=== PATIENT | male | born 1940 | race Caucasian/White ===

== ENCOUNTER 2017-06-05 14:08 | Emergency (ER) | payer MEDICARE, BC ==
[2017-06-05 16:02] LABS: ALBUMIN 3.3 g/dL (3.4-5.0); ANION GAP 12.5 mmol/L (8-16); BILIRUBIN - TOTAL 0.44 mg/dL (0.2-1.3); CALCIUM 9.3 mg/dL (8.5-10.1); CARBON DIOXIDE 28.4 mmol/L (21.0-32.0); PROTEIN - SERUM 7.2 g/dL (6.4-8.2)
[2017-06-05 16:05] LABS: BASOPHILS 0.2 % (0-2); EOSINOPHILS 0.6 % (0-7); HEMATOCRIT 59.5 % (42.0-54.0); HEMOGLOBIN 20.8 g/dL (13.5-17.5); IMMATURE GRANULOCYTES 0.2 % (0-5); LYMPHOCYTES 11.6 % (15-50); MCH 34.2 pg (26.0-34.0); MCV 97.7 fL (80.0-100.0); MEAN PLATELET VOLUME 12.9 fL (7.4-10.4); MONOCYTES 15.6 % (2-11); PLATELET COUNT 67 10x3/uL (130-400); RBC 6.09 10x6/uL (4.20-6.10); RDW 13.7 % (11.5-14.5); WBC 8.7 10x3/uL (4.8-10.8)
[2017-06-05 16:14] LABS: POTASSIUM - SERUM 2.9 mmol/L (3.5-5.1)
[2017-06-05 16:44] LABS: PLATELET ESTIMATE DECREASED
[2017-06-05 16:45] LABS: NEUTROPHILS 71.8 % (40-80)
== END 2017-06-05 18:15 | disposition home or self-care (01) ==
LOC: D.ER 14:08
PROVIDERS: Physician Assistant
DX: K59.00 Constipation, unspecified (principal); R10.32 Left lower quadrant pain; R09.02 Hypoxemia; N28.9 Disorder of kidney and ureter, unspecified; I10 Essential (primary) hypertension; F17.200 Nicotine dependence, unspecified, uncomplicated

== ENCOUNTER → 2017-06-26 12:35 | Outpatient (CLI) | payer MEDICARE, BC ==
[2017-06-26 13:25] LABS: ANION GAP 16.3 mmol/L (8-16); CALCIUM 9.4 mg/dL (8.5-10.1); CARBON DIOXIDE 28.7 mmol/L (21.0-32.0); CREATININE - SERUM 1.4 mg/dL (0.6-1.3)
== END | disposition home or self-care (01) ==
LOC: D.LABREF 12:35
PROVIDERS: Family Medicine
DX: E11.9 Type 2 diabetes mellitus without complications (principal); J44.9 Chronic obstructive pulmonary disease, unspecified

== ENCOUNTER → 2017-07-15 17:54 | Outpatient (CLI) | payer MEDICARE, BC | END | disposition home or self-care (01) | LOC: D.LABREF 17:54 | DX: R31.9 Hematuria, unspecified (principal) ==

== ENCOUNTER → 2017-08-07 13:44 | Outpatient (CLI) | payer MEDICARE, BC ==
[~2017-08-07 13:44] MED LIST: CHLORTHALIDONE25 MG PO; GLIMEPIRIDE1 MG PO; HYDROCODONE-APA1 TAB PO; K-DUR20 MEQ PO; LIPITOR40 MG PO; LOSARTAN POTASS25 MG PO; NEURONTIN600 MG PO; NORVASC10 MG PO; PLAVIX75 MG PO; ROBAXIN500 MG PO; VENTOLIN HFA18 GM INH
[2017-10-08 09:49] VITALS: BMI 28.3
== END | disposition home or self-care (01) ==
LOC: D.CT 13:44
DX: R31.21 Asymptomatic microscopic hematuria (principal)

== ENCOUNTER → 2017-08-21 16:13 | Outpatient (CLI) | payer MEDICARE, BC ==
[2017-08-21 17:01] LABS: CHOL - HDL RATIO 2.7 ratio (2.3-4.9); LDL-HDL RATIO 1.2 ratio (1.5-3.5)
[2017-08-22 08:18] LABS: FOLATE (FOLIC ACID) - SERUM 6.2 ng/mL (>3.0)
[2017-10-08 09:49] VITALS: BMI 28.3
== END | disposition home or self-care (01) ==
LOC: D.LABREF 16:13
PROVIDERS: Internal Medicine Cardiovascular Disease
DX: E78.5 Hyperlipidemia, unspecified (principal); R53.83 Other fatigue

== ENCOUNTER 2017-10-08 08:43 | Day surgery (SDC) | payer MEDICARE, BC ==
[2017-10-07 10:15] LABS: BASOPHILS 0.5 % (0-2); EOSINOPHILS 4.5 % (0-7); HEMATOCRIT 53.3 % (42.0-54.0); HEMOGLOBIN 18.6 g/dL (13.5-17.5); IMMATURE GRANULOCYTES 0.2 % (0-5); LYMPHOCYTES 22.3 % (15-50); MCHC 34.9 g/dL (31.0-37.0); MCV 97.4 fL (80.0-100.0); MEAN PLATELET VOLUME 12.1 fL (7.4-10.4); MONOCYTES 10.8 % (2-11); NEUTROPHILS 61.7 % (40-80); RBC 5.47 10x6/uL (4.20-6.10); RDW 13.3 % (11.5-14.5); WBC 8.1 10x3/uL (4.8-10.8)
[2017-10-07 10:20] LABS: PLATELET COUNT 105 10x3/uL (130-400)
[2017-10-07 10:26] LABS: APTT 33.3 SECONDS (22.8-39.4); INR 1.01 (0.85-1.17); PROTIME 12.9 SECONDS (11.6-15.0)
[2017-10-07 10:30] LABS: ANION GAP 12.9 mmol/L (8-16); CALCIUM 9.1 mg/dL (8.5-10.1); CARBON DIOXIDE 31.7 mmol/L (21.0-32.0); CREATININE - SERUM 1.4 mg/dL (0.6-1.3); POTASSIUM - SERUM 3.6 mmol/L (3.5-5.1)
[~2017-10-08] VITALS: Ht 188 cm; Wt 99.8 kg
--- NOTE | ~2017-10-08 | OP ---
PATIENT NAME: PIPPA HDEZ MEDICAL RECORD: [id number] :38 LOCATION:D.[facility] ADMISSION DATE: SURGEON: YAMIL COSME MD DATE OF OPERATION: 10/08/2017 SURGEON: Yamil Cosme MD ANESTHESIA: MAC by Dr. Iain Salomon. PREOPERATIVE DIAGNOSIS: Urge urinary incontinence. PROCEDURES: Cystoscopy and intravesical Botox injection 100 units. FINDINGS: Trabeculated bladder, tall bladder neck. No bladder tumors. Mucosal neovascularity from previous radiation treatment. BLOOD LOSS: None. CLINICAL HISTORY: This is a 77-year-old male with a previous history of prostate cancer, which was treated with brachytherapy. He complains of urge urinary incontinence as well as microscopic hematuria. Urine cytology is normal. CT scan of the abdomen and pelvis was unremarkable. There are some renal cysts bilaterally with some loss of the renal cortices. There is diverticulosis of the colon. The radioactive seeds in the prostate are seen. 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 No tumors were seen. In terms of voiding, he has to urinate every hour on the hour at night. In the daytime, he voids every 1-1/2 hours. He is very sleep deprived due to having to wake up all the time to go pee. He has tried VESIcare without any help. He has also tried Myrbetriq samples, which also did not help. He comes now to have intravesical Botox injected. His postvoid residual with Myrbetriq was 0. He was given 2 grams of Ancef trade union official to the OR. HE IS ALLERGIC TO SULFA. DESCRIPTION OF PROCEDURE: The patient was given IV sedation. He was placed in the dorsal lithotomy position and prepped and draped. A 21-Israeli cystoscope with 30-degree lens was used for visualization. Penile urethra shows no strictures. Prostatic urethra shows no obstruction by the lateral lobes. There was a somewhat elevated bladder neck. Going into the bladder, he has a mildly trabeculated bladder. Single ureteral orifices are seen. No bladder tumors were seen, but there was a lot of neovascularity due to previous radiation exposure. At 10 different locations, 1 mL of the Botox solution was injected. Each mL has 10 units of Botox dissolved in it. A total of 100 units was given overall. At the end of the procedure, the bladder was emptied through the scope and the scope was removed. I will see the patient in followup in 2 weeks' time to check on his voiding symptoms. TRANSINT:[id number] Voice Confirmation ID: [id number] DOCUMENT ID: [id number] OPERATIVE REPORT [id number] PIPPA HDEZ, YAMIL Babb MD at 1538 CC: [id number] DICTATION DATE: 10/08/17 1302 JAVA ARCHITECT: 10/08/17 1515 [address] [place] [id number] [place] [id number]
[2017-10-08 09:49] VITALS: BP 129/65; Ht 188 cm; Wt 99.8 kg
== END 2017-10-08 17:00 | disposition home or self-care (01) ==
LOC: D.OPS 08:43
PROVIDERS: Anesthesiology
DX: N39.41 Urge incontinence (principal); F17.200 Nicotine dependence, unspecified, uncomplicated; I25.10 Atherosclerotic heart disease of native coronary artery without angina pectoris; I10 Essential (primary) hypertension; E11.9 Type 2 diabetes mellitus without complications; J44.9 Chronic obstructive pulmonary disease, unspecified; Z01.812 Encounter for preprocedural laboratory examination

== ENCOUNTER → 2017-11-04 10:32 | Outpatient (CLI) | payer MEDICARE, BC ==
[2017-10-08 09:49] VITALS: BMI 28.3
--- NOTE | ~2017-11-04 | EC ---
PATIENT:PIPPA HDEZ DATE OF SERVICE: 11/04/17 SEX: M MEDICAL RECORD: [id number] DATE OF : 36 LOCATION:D.[facility] AGE OF PATIENT: 77 ADMISSION DATE: 11/04/17 REFERRING PHYSICIAN: INTERPRETING PHYSICIAN: ANITA RODRIGUEZ MD ECHOCARDIOGRAM REPORT ECHO CHARGES 4 ECHO COMPLETE Date: 11/04 CLINICAL DIAGNOSIS: OLD MO, CAD/HTN/FATIGUE, PACER ECHOCARDIOGRAPHIC MEASUREMENTS (adult normal given) AC root (d.<3.7cm) 4.0 cm LV Septum d (<1.2 cm> 1.6 cm Valve Excursion 1.3 cm LV Septum (systole) 1.7 cm Left Atria (s.<4.0cm> 3.6 cm LVPW d(<1.2cm) 1.8 cm RV (d.<2.3cm) 4.7 cm LVPW (sytole) 2.0 cm LV diastole(<5.6CM) 5.4 cm MV E-F(>70mm/sec) cm LV systole 3.3 cm LVOT Diameter 2.2 cm MV exc.(>10mm) cm Est.ejection fraction (50-75%) % DOPPLER: LVIT cm/sec A 122 cm/sec E 72.0 cm/sec LA cm/sec RVSP 22 mmHg LVOT 108 cm/sec AOP1/2T m/s Asc. Ao 185 cm/sec RVOT 97 cm/sec RA cm/sec PA 141 cm/sec AV Gradient Peak 13.74mmHg AV Mean 6.78 mmHg AV Area 2.2 cm MV Gradient Peak 6.99 mmHg MV Mean 3.05 mmHg MV Area cm COMMENTS: Saw Superintendent: Manolo CH Business Performance Analyst: Federico Rodriguez TAPE# PACS Pericardial Effusion N DATE OF SERVICE: PROCEDURE: Transthoracic echocardiogram. FINDINGS: 1. Left ventricle is difficult to interpret. The endocardial structures are not well visualized; however, that being said, the left ventricle has mild left ventricular hypertrophy. Ejection fraction seems to be well preserved. There is no obvious regional wall motion abnormalities. The inflow characteristics are consistent with diastolic dysfunction. ECHOCARDIOGRAM REPORT [id number] PIPPA HDEZ 2. The left atrium appears to be grossly normal. 3. The aortic valve is grossly normal. 4. The mitral valve is normal. 5. The tricuspid valve has trace regurgitation. RVSP is normal. 6. The right ventricle is dilated. 7. The right atrium is dilated. Both structures are not well visualized, appears to be a pacer wire artifact. CONCLUSIONS: The patient has evidence of hypertensive heart disease, otherwise normal echocardiogram for stated age. TRANSINT:[id number] Voice Confirmation ID: [id number] DOCUMENT ID: [id number] ANITA RODRIGUEZ MD at 1120 CC: [id number] DICTATION DATE: 11/06/17 0946 ENGINE WIPER: 11/06/17 1027 DEP CLI 11/04/17 [facility] [address] [place] [address]
[~2017-11-04 10:32] MED LIST changes: +PEPCID40 MG PO
== END | disposition home or self-care (01) ==
LOC: D.ECHO 09-09 13:30
DX: I25.2 Old myocardial infarction (principal); I25.10 Atherosclerotic heart disease of native coronary artery without angina pectoris; E78.5 Hyperlipidemia, unspecified; I10 Essential (primary) hypertension; R53.83 Other fatigue; I73.9 Peripheral vascular disease, unspecified; Z95.0 Presence of cardiac pacemaker

== ENCOUNTER → 2017-12-05 08:56 | Outpatient (CLI) | payer MEDICARE, BC ==
[~2017-12-05] VITALS: Ht 188 cm; Wt 101.8 kg
--- NOTE | ~2017-12-05 | HEMODYNAMI ---
PATIENT:PIPPA HDEZ MEDICAL RECORD: [id number] : 36 LOCATION:D.[facility] ADMISSION DATE: 12/05/17 Generatedon:12/05/20179:46 Patient name: PIPPA HDEZ Patient #: [id number] SSN: : 1 Date of study: 12/05/2017 Page: Of Hemodynamic Procedure Report Patient Data Patient Demographics Procedure consent was obtained First Name: PIPPA Gender: Male Last Name: KETTY : 1940 Middle Initial: LI Age: 77 year(s) Patient #: [id number] Race: Unknown Additional ID: [id number] Contact details Address: [facility] [address] State: [place] City: [place] Zip code: [address] Past Medical History Allergies Allergen Reaction Date Comments Reported Other allergy 12/05/2017 sulfa Admission Admission Data Admission Date: 12/05/2017 Admission Time: 8:56 Lab Results Lab Result Date: 12/05/2017 Lab Result Time: 0:00 Biochemistry Name Units Result Min Max BUN mg/dl 27 --(----)-* 7 18 Creatinine mg/dl 1.5 --(----)-* 0.6 1.3 CBC Name Units Result Min Max Hematocrit % 47.9 --(-*--)-- 42 54 Hemoglobin g/dl 16.8 --(---*)-- 13.5 17.5 Procedure Procedure Types Cath Procedure Diagnostic Procedure LHC LHC w/Coronaries Procedure Description Procedure Date Procedure Date: 12/05/2017 Procedure Start Time: 9:31 Procedure End Time: 9:45 Procedure Staff Name Function Manuelito Salazar MD Performing Physician Nazario Lantigua RN Nurse Johnson Adamson RT Scrub Coleman Neri RT Monitor Procedure Data Cath Procedure Fluoroscopy Diagnostic fluoroscopy Total fluoroscopy Time: 3.5 time: 3.5 min min Diagnostic fluoroscopy Total fluoroscopy dose: dose: 1074 mGy 1074 mGy Contrast Material Contrast Material Type Amount (ml) Isovue 300 84 Entry Location Entry Primary Successful Side Size Upsize Upsize Entry Closure Kolb ccessful Closure Location (Fr) 1 (Fr) 2 (Fr) Remarks Device Remarks Radial Right 6 Fr Mechanical artery Short Compression Estimated blood loss: 5 ml Diagnostic catheters Device Type Used For End Catheter Placement DIAGNOSTIC Arjay 110cm 5 Procedure Fr catheter ([id number]) Procedure Complications No complications Procedure Medications Medication Administration Route Dosage Oxygen etCO2 Nasal cannula 2 l/min Heparin Flush Bag added to field 2 bags (1000units/500ml NS) 0.9% NaCl I.V. 100 ml/hr Radial Cocktail added to field 1 syringe (Verapomil 2mg/Nitro 400mcg/Heparin 1500units) Fentanyl I.V. 50 mcg Versed I.V. 1 mg Radial Cocktail I.A. 1 syringe (Verapomil 2mg/Nitro 400mcg/Heparin 1500units) Hemodynamics Rest HGB: 16.8 (g/dl) Heart Rate: 78 (bpm) Pressure Samples Time Site Value (mmHg) Purpose Heart Use Rate(bpm) 9:34 LV 117/-9,15 EDP 38 Gradients Valve Time Site Site Mean SEP/DFP Peak To Heart Use 1 2 (mmHg) (sec/min) Peak Rate (mmHg) (bpm) Aortic 9:35 LV AO 71 Snapshots Pre Cath Intra NCS Post Cath Vital Signs Time Heart Resp SPO2 etCO2 NIBP (mmHg) Rhythm Pain Sedation Rate (ipm) (%) (mmHg) Status Level (bpm) 9:15:32 80 16 86 9.7 139/86(113) NSR 0 (11) 10(A) , No pain 9:19:53 82 12 89 39.1 128/78(111) NSR 0 (11) 10(A) , No pain 9:23:58 81 22 85 0 115/74(102) NSR 0 (11) 10(A) , No pain 9:29:03 75 17 82 31.6 124/70(91) NSR 0 (11) 10(A) , No pain 9:33:19 75 19 79 0 121/73(94) NSR 0 (11) 10(A) , No pain 9:37:34 80 21 76 0 120/62(92) NSR 0 (11) 10(A) , No pain 9:41:47 80 20 81 0 123/60(90) NSR 0 (11) 10(A) , No pain 9:44:13 81 18 82 15 126/71(94) NSR 0 (11) 10(A) , No pain Medications Time Medication Route Dose Verified Delivered Reason Notes Effectiveness by by 9:15:16 Oxygen etCO2 2 l/min Manuelito Nazario Per Nasal Martin Lantigua RN physician cannula 9:15:25 Heparin Flush added 2 bags Manuelito Nazario used for Bag to Martin Lantigua RN procedure (1000units/500ml field YOST NS) 9:15:35 0.9% NaCl I.V. 100 Manuelito Nazario Per ml/hr Martin Lantigua RN physician MD 9:15:45 Radial Cocktail added 1 Manuelito Nazario used for (Verapomil to syringe Martin Lantigua RN procedure 2mg/Nitro field YOST 400mcg/Heparin 1500units) 9:30:02 Fentanyl I.V. 50 mcg Manuelito Nazario for sedation Martin Lantigua RN, MD 9:30:09 Versed I.V. 1 mg Manuelito Nazario for sedation Martin Lantigua RN, MD 9:34:05 Radial Cocktail I.A. 1 Manuelito Manuelito for (Verapomil syringe Martin Salazar MD vasodilation 2mg/Nitro 400mcg/Heparin 1500units) Procedure Log Time Note 8:55:09 Johnson DAS(R) sent for patient. Start room use. 9:00:07 Diagnostic Cath status Elective 9:00:11 Time tracking: Regular hours (M-F 7:00 - 5:00) 9:00:14 Plan of Care:Hemodynamics will remain stable., Cardiac rhythm will remain stable., Comfort level will be maintained., Respiratory function will remain adequate., Patient/ family verbilizes understanding of procedure., Procedure tolerated without complication., Recovers from procedure without complications.. 9:01:00 H&P Date Dictated: 12/01/2017 Within 30 days and on chart., H&P Addendum completed by physician on day of procedure. (MUST COMPLETE FOR ALL OUTPATIENTS). 9:02:53 Lab Result : BUN 27 mg/dl 9:02:53 Lab Result : Hemoglobin 16.8 g/dl 9:02:53 Lab Result : Creatinine 1.5 mg/dl 9:02:53 Lab Result : Hematocrit 47.9 % 9:03:12 Informed consent obtained and on chart 9:08:12 Patient received from Pre/Post Procedure Room to CCL 2 Alert and oriented. Tansferred to table in Supine position. 9:08:13 Warm blankets applied, and leslie hugger turned on for patient comfort. 9:08:13 Correct patient and procedure confirmed by team. 9:08:14 Pre-procedure instructions explained to patient. 9:08:15 Pre-op teaching completed and patient verbalized understanding. 9:08:16 Family in waiting room. 9:08:17 Patient NPO since Midnight. 9::22 ECG and BP/O2 sat monitors applied to patient. 9:14:22 Vital chart was started 9:15:16 Oxygen 2 l/min etCO2 Nasal cannula was administered by Nazario Lantigua RN; Per physician; 9:15:25 Heparin Flush Bag (1000units/500ml NS) 2 bags added to field was administered by Nazario Lantigua RN; used for procedure; 9:15:35 0.9% NaCl 100 ml/hr I.V. was administered by Nazario Lantigua RN; Per physician; 9:15:45 Radial Cocktail (Verapomil 2mg/Nitro 400mcg/Heparin 1500units) 1 syringe added to field was administered by Nazario Lantigua RN; used for procedure; 9:24:40 Baseline sample Acquired. 9:25:16 Rhythm: sinus rhythm , paced 9:25:18 Full Disclosure recording started 9:25:33 Patient allergic to Other allergysulfa 9:25:35 Is the patient allergic to Iodine/contrast media? No. 9:25:36 Is patient on blood thinner?Yes 9:25:39 ACC The patient was administered the following blood thiners within the last 24 hours: ACCPlavix 9:25:41 Patient diabetic? Yes. 9:25:43 If diabetic: On Metformin? No 9:25:54 Previous problem with sedation/anesthesia? No ? 9:25:56 Snore? No 9:25:57 Sleep apnea? No 9:25:57 Deviated septum? No 9:25:58 Opens mouth fully? Yes 9:25:59 Sticks out tongue? Yes 9:26:02 Airway obstruction? Yes copd 9:26:04 Dentures? Yes out 9:26:10 Modified Shade's test Ulnar < 7 seconds 9:26:12 Patient pain scale 0/10 ?. 9:26:21 IV patent on arrival in left wrist with 0.9% NaCl at [facility]. 9:26:29 Lab results completed and on chart. 9:26:35 Right Radial & Right Groin area was prepped with chlora-prep and draped in sterile fashion 9::36 Alarms reviewed by R. N. 9::36 Sharps counted by scrub and verified by R.N. 9:26:52 Use device set Radial Dx or PCI 9:26:53 ACIST Syringe (28323) opened to sterile field. 9:27:19 Medline Cath Pack ([id number]) opened to sterile field. 9:27:19 Bag Decanter (2002S) opened to sterile field. 9:27:20 ACIST Hand Control (65735) opened to sterile field. 9:27:21 ACIST Manifold (91401) opened to sterile field. 9:27:21 Tegaderm 4 x 4 (1626W) opened to sterile field. 9:27:22 MBrace Wrist Support ([id number]) opened to sterile field. 9:27:24 DIAGNOSTIC WIRE .035 260cm J wire (418086) opened to sterile field. 9:27:25 SHEATH 6Fr Prelude Radial ([id number]) opened to sterile field. 9:27:32 Physician arrived 9::32 --------ALL STOP TIME OUT------ 9:27:32 Final Timeout: patient, procedure, and site verified with staff and physician. All members of the team are in agreement. 9:27:34 Right Radial & Right Groin site verified by team. 9:27:36 Physical assessment completed. ASA score P 3 - A patient with severe systemic disease as per Manuelito Salazar MD. 9:27:38 Sedation plan: IV Moderate Sedation Medication:Versed, Fentanyl 9:30:02 Fentanyl 50 mcg I.V. was administered by Nazario Lantigua RN; for sedation; 9:30:09 Versed 1 mg I.V. was administered by Nazario Lantigua RN; for sedation; 9:31:20 Procedure started. 9:31:25 Local anesthetic to right radial artery with Lidocaine 2% by Manuelito Salzaar MD.INITIAL ACCESS ONLY 9:31:52 Zero performed for pressure channel P1 9:34:05 Radial Cocktail (Verapomil 2mg/Nitro 400mcg/Heparin 1500units) 1 syringe I.A. was administered by Manuelito Salazar MD; for vasodilation; 9:34:06 A 6 Fr Short sheath was inserted into the Right Radial artery 9:34:13 A DIAGNOSTIC Arjay 110cm 5 Fr catheter (199218) was advanced over the wire and used for Procedure. 9:34:59 LV gram done using BASS 9:35:00 LV hemodynamics recorded. 9:35:03 Injector settings: Ml/sec: 12, Volume: 8., 9:35:15 EF : 45 % 9:35:33 RCA angiography performed. 9:37:16 LCA angiography performed. 9:41:16 Catheter removed. 9:42:14 TR BAND Standard ([id number]) opened to sterile field. 9:42:24 Sheath removed intact; hemostasis achieved with Mechanical Compression to the Right Radial artery. 9:42:25 Procedure ended.(Physican Out) 9:43:18 Fluoroscopy time 03.50 minutes. 9:43:23 Fluoroscopy dose: 1074 mGy 9:43:23 Flurop Dose total: 1074 9:43:30 Contrast amount:Isovue 300 84ml. 9:43:46 Sharps counted by scrub and verified by R.N. 9:43:51 TR band inflated with 12cc of air. 9:43:54 Insertion/operative site no bleeding no hematoma. 9:44:05 Post Procedure Pulses reassessed and unchanged 9:44:25 Post-procedure physical assessment completed. ASA score P 3 - A patient with severe systemic disease as per Manuelito Salazar MD. 9:44:36 Post procedure rhythm: unchanged. 9:44:39 Estimated blood loss: 5 ml 9:44:40 Post procedure instruction explained to patient.Patient verbalizes understanding. 9:44:41 Patient needs reinforcement of post procedure teaching. 9:45:03 Procedure and supply charges have been captured, reviewed, submitted and are correct. 9:45:06 Procedure Complication : No complications 9:45:07 Vital chart was stopped 9:45:07 See physician's report for complete and final results. 9:45:10 Report given to Pre/Post Procedure Room. 9:45:12 Patient transfered to Pre/Post Procedure Room with Stretcher. 9:45:14 Procedure ended. 9:45:14 Full Disclosure recording stopped 9:45:19 End room use (Document Last) Device Usage Item Name Manufacture Quantity Catalog Number Hospital Part Current M inimal Lot# / Charge Number Stock Stock Serial# Code ACIST Syringe Acist 1 28516 [id number] 496326 [id number] 2 0 (29884) Medical [employer] Medline Cath Cardinal 1 [id number] 74373 060943 5 Pack Health ([id number]) Bag Decanter Microtek 1 2001S 880634 48904 126489 5 (2001S) Medical Inc. ACIST Hand Acist 1 29604 382560 824902 550200 5 Control (22717) [employer] Inc ACIST Manifold Acist 1 41231 623636 674106 855704 5 (43777) [employer] Inc Tegaderm 4 x 4 3M 1 1626W 400562 062342 772351 5 (1626W) MBrace Wrist Advanced 1 140-0250-00 588434 28441 670503 5 Support Vascular ([id number]) Dynamics DIAGNOSTIC WIRE St Samuel 1 973698 879943 661913 746546 3 0 .035 260cm J wire (892964) SHEATH 6Fr Merit 1 [id number] 734518 236265 184233 5 Prelude Radial Medical ([id number]) DIAGNOSTIC Terumo 1 40-5565 838524 642635 605233 5 Arjay 110cm 5 Fr catheter (654444) TR BAND Terumo 1 [id number] 886922 639332 026059 4 0 Standard ([id number]) Signature Audit [place] Stage Time Signature Unsigned Intra-Procedure 12/05/2017 Coleman Neri 9:46:00 AM RT(R) Signatures Monitor : Coleman Neri RT Signature : Date : Time : [place] [id number] [place] [address]
[2017-12-05 07:51] VITALS: BP 123/62; Ht 188 cm; Wt 101.8 kg
[2017-12-05 08:15] LABS: BASOPHILS 0.3 % (0-2); EOSINOPHILS 5.7 % (0-7); HEMATOCRIT 47.9 % (42.0-54.0); HEMOGLOBIN 16.8 g/dL (13.5-17.5); IMMATURE GRANULOCYTES 0.3 % (0-5); LYMPHOCYTES 30.9 % (15-50); MCH 34.1 pg (26.0-34.0); MCHC 35.1 g/dL (31.0-37.0); MCV 97.4 fL (80.0-100.0); MONOCYTES 15.9 % (2-11); NEUTROPHILS 46.9 % (40-80); PLATELET COUNT 110 10x3/uL (130-400); RBC 4.92 10x6/uL (4.20-6.10); RDW 13.2 % (11.5-14.5); WBC 6.7 10x3/uL (4.8-10.8)
[2017-12-05 08:26] LABS: CALCIUM 8.4 mg/dL (8.5-10.1); CARBON DIOXIDE 28.7 mmol/L (21.0-32.0); CREATININE - SERUM 1.5 mg/dL (0.6-1.3); POTASSIUM - SERUM 3.7 mmol/L (3.5-5.1)
[~2017-12-05 08:56] MED LIST changes: +BAYER CHEWABLE81 MG PO
== END | disposition home or self-care (01) ==
LOC: D.CATH 08:56
PROVIDERS: Internal Medicine Interventional Cardiology
DX: I25.10 Atherosclerotic heart disease of native coronary artery without angina pectoris (principal); R94.39 Abnormal result of other cardiovascular function study; Z01.812 Encounter for preprocedural laboratory examination

== ENCOUNTER 2017-12-30 07:42 | Outpatient (CLI) | payer MEDICARE, BC ==
[~2017-12-30] VITALS: Ht 182.9 cm; Wt 105.0 kg
[~2017-12-30 07:42] MED LIST changes: -BAYER CHEWABLE81 MG PO; -PEPCID40 MG PO
[2017-12-30] MEDS ORDERED: PEPCID40 MG PO (08:51)
[2017-12-30 09:28] VITALS: BP 145/46; Ht 182.9 cm; Wt 105.0 kg
== END 2017-12-30 11:10 | disposition home or self-care (01) ==
LOC: D.CATH 07:42
DX: I25.110 Atherosclerotic heart disease of native coronary artery with unstable angina pectoris (principal); I10 Essential (primary) hypertension

== ENCOUNTER 2018-01-01 09:58 | Outpatient (CLI) | payer MEDICARE, BC ==
[~2018-01-01] VITALS: Ht 185.4 cm; Wt 104.1 kg
--- NOTE | ~2018-01-01 | HEMODYNAMI ---
PATIENT:PIPPA HDEZ MEDICAL RECORD: [id number] : 36 LOCATION:D.CAT ADMISSION DATE: 01/01/18 Generatedon:01/01/201813:23 Patient name: PIPPA HDEZ Patient #: [id number] SSN: : 1 Date of study: 01/01/2018 Page: Of Hemodynamic Procedure Report Patient Data Patient Demographics Procedure consent was obtained First Name: PIPPA Gender: Male Last Name: KETTY : 1940 Middle Initial: LI Age: 77 year(s) Patient #: [id number] Race: Unknown Additional ID: [id number] Contact details Address: [facility] [address] State: [place] City: [place] Zip code: [address] Past Medical History Allergies Allergen Reaction Date Comments Reported Other allergy 12/05/2017 sulfa Other allergy 01/01/2018 sulfa Admission Admission Data Admission Date: 01/01/2018 Admission Time: 9:58 Admit Source: Other Procedure Procedure Types Cath Procedure Diagnostic Procedure Sedation Charges Moderate Sedation up to 15 minutes PCI Procedure Coronary Stent Coronary Stent Initial x2 Procedure Description Procedure Date Procedure Date: 01/01/2018 Procedure Start Time: 12:51 Procedure End Time: 13:22 Procedure Staff Name Function Silverio Santiago MD Performing Physician Coleman Neri RT Monitor Pebbles Lopez RT Scrub Matthew Veras RN Nurse Procedure Data Cath Procedure Fluoroscopy Diagnostic fluoroscopy Total fluoroscopy Time: 5 time: 5 min min Contrast Material Contrast Material Type Amount (ml) Isovue 300 106 Entry Location Entry Primary Successful Side Size Upsize Upsize Entry Closure Succes sful Closure Location (Fr) 1 (Fr) 2 (Fr) Remarks Device Remarks Femoral Right 7 Fr Exoseal artery Short Estimated blood loss: 10 ml Procedure Complications No complications Procedure Medications Medication Administration Route Dosage Oxygen etCO2 Nasal cannula 4 l/min Lidocaine 2% added to field 20 Heparin Flush Bag added to field 2 bags (1000units/500ml NS) 0.9% NaCl I.V. 100 ml/hr Heparin Bolus I.V. 5000 units Versed I.V. 1 mg Fentanyl I.V. 50 mcg Hemodynamics Rest Heart Rate: 70 (bpm) Snapshots Pre Cath Intra NCS Post Cath Vital Signs Time Heart Resp SPO2 etCO2 NIBP (mmHg) Rhythm Pain Sedation Rate (ipm) (%) (mmHg) Status Level (bpm) 12:44:53 70 15 90 0 132/75(108) NSR 0 (11) 10(A) , No pain 12:49:09 72 33 89 0 132/76(93) NSR 0 (11) 10(A) , No pain 12:53:25 68 18 90 0 129/72(108) NSR 0 (11) 10(A) , No pain 12:57:43 68 27 90 0 128/67(103) NSR 0 (11) 10(A) , No pain 13:01:59 70 22 91 0 118/66(94) NSR 0 (11) 10(A) , No pain 13:06:11 71 12 91 0 124/66(98) NSR 0 (11) 10(A) , No pain 13:10:25 68 22 90 0 123/71(95) NSR 0 (11) 10(A) , No pain 13:15:24 79 5 89 0 127/72(105) NSR 0 (11) 10(A) , No pain 13:19:38 70 21 88 0 127/73(110) NSR 0 (11) 10(A) , No pain Medications Time Medication Route Dose Verified Delivered Reason Notes Effectiveness by by 12:43:21 Oxygen etCO2 4 Silverio Castro used for Nasal l/min Jack Veras RN procedure cannula 12:43:27 Lidocaine 2% added 20ml Silverio Sawyer for local to vial Jack Santiago MD anesthetic field 12:43:33 Heparin Flush added 2 Silverio Sawyer used for Bag to bags Jack Santiago MD procedure (1000units/500ml field NS) 12:43:41 0.9% NaCl I.V. 100 Silverio Buffie Per physician ml/hr Jack Veras RN 12:52:32 Versed I.V. 1 mg Silverio Castro for sedation Jack Veras RN 12:55:10 Heparin Bolus I.V. 5000 Silverio Ralphie for verif ied units Jack Veras RN anticoagulation with dr santiago 12:57:38 Fentanyl I.V. 50 Silveriokike Castro for sedation [facility] Pedro MD Eda PATELresourcing consultant Log Time Note 12::24 Informed consent obtained and on chart 12::26 Admit Source: Other 12::37 Diagnostic Cath status Elective 12::39 Matthew Veras RN sent for patient. Start room use. 12:23:39 Time tracking: Regular hours (M-F 7:00 - 5:00) 12:23:44 Plan of Care:Hemodynamics will remain stable., Cardiac rhythm will remain stable., Comfort level will be maintained., Respiratory function will remain adequate., Patient/ family verbilizes understanding of procedure., Procedure tolerated without complication., Recovers from procedure without complications.. 12:23:59 H&P Date Dictated: 12/22/2017 Within 30 days and on chart., H&P Addendum completed by physician on day of procedure. (MUST COMPLETE FOR ALL OUTPATIENTS). 12:28:49 Patient received from Pre/Post Procedure Room to CCL 2 Alert and oriented. Tansferred to table in Supine position. 12:28:50 Warm blankets applied, and leslie hugger turned on for patient comfort. 12:28:50 Correct patient and procedure confirmed by team. 12:28:51 ECG and BP/O2 sat monitors applied to patient. 12:28:52 Pre-procedure instructions explained to patient. 12:28:52 Pre-op teaching completed and patient verbalized understanding. 12:28:54 Family in waiting room. 12:28:55 Patient NPO since Midnight. 12:43:21 Oxygen 4 l/min etCO2 Nasal cannula was administered by Matthew Veras RN; used for procedure; 12:43:27 Lidocaine 2% 20ml vial added to field was administered by Silveiro Santiago MD; for local anesthetic; 12:43:33 Heparin Flush Bag (1000units/500ml NS) 2 bags added to field was administered by Silverio Santiago MD; used for procedure; 12:43:41 0.9% NaCl 100 ml/hr I.V. was administered by Matthew Veras RN; Per physician; 12:43:44 Vital chart was started 12:49:53 Baseline sample Acquired. 12:49:59 Rhythm: sinus rhythm 12:50:01 Full Disclosure recording started 12:50:12 Patient allergic to Other allergysulfa 12:50:14 Is the patient allergic to Iodine/contrast media? No. 12:50:15 Is patient on blood thinner?Yes 12:50:17 ACC The patient was administered the following blood thiners within the last 24 hours: ACCPlavix 12:50:23 Patient diabetic? Yes. 12:50:24 If diabetic: On Metformin? No 12:50:26 Previous problem with sedation/anesthesia? No ? 12:50:27 Snore? No 12:50:28 Sleep apnea? No 12:50:28 Deviated septum? No 12:50:29 Opens mouth fully? Yes 12:50:30 Sticks out tongue? Yes 12:50:33 Airway obstruction? Yes copd 12:50:35 Dentures? No ? 12:50:37 Pre procedure: right dorsailis pedis pulse 2+ Normal; easily identifiable; not easily obliterated 12:50:40 Patient pain scale 0/10 ?. 12:50:44 IV patent on arrival in left forearm with 0.9% NaCl at O. 12:50:47 INFLATOR Merit BasixCompak (BG2426) opened to sterile field. 12:50:47 GUIDE 7FR EBU 3.5 SH catheter ([id number]) opened to sterile field. 12:50:48 Right groin area was prepped with chlora-prep and draped in sterile fashion 12:50:49 Alarms reviewed by R. N. 12:50:49 Sharps counted by scrub and verified by R.N. 12:50:52 Use device set Femoral Dx 12:50:53 ACIST Syringe (41710) opened to sterile field. 12:50:53 Bag Decanter (2002S) opened to sterile field. 12:50:53 Medline Cath Pack ([id number]) opened to sterile field. 12:50:54 DIAGNOSTIC WIRE .035 260cm J wire (021986) opened to sterile field. 12:50:55 ACIST Hand Control (74584) opened to sterile field. 12:50:55 ACIST Manifold (03493) opened to sterile field. 12:50:56 Tegaderm 4 x 4 (1626W) opened to sterile field. 12:51:13 SHEATH 7FR Luxor (AEV825) opened to sterile field. 12:51:18 Physician arrived 12::19 --------ALL STOP TIME OUT------ 12::19 Final Timeout: patient, procedure, and site verified with staff and physician. All members of the team are in agreement. 12:51:21 Right groin site verified by team. 12:51:24 Physical assessment completed. ASA score P 3 - A patient with severe systemic disease as per Silverio Santiago MD. 12:51:27 Sedation plan: IV Moderate Sedation Medication:Versed, Fentanyl 12:51:46 Quick Combo opened to sterile field. 12:51:49 Quick combo pads placed on patients chest and back. 12:51:54 Procedure started. 12::57 Local anesthetic to right femoral artery with Lidocaine 2% by Silverio Santiago MD.INITIAL ACCESS ONLY 12:52:13 A 7 Fr Short sheath was inserted into the Right Femoral artery 12:52:15 7 Fr ebu 3.5 sh guide catheter was inserted over the wire 12:52:24 Guide Catheter removed. unable to cannulate vessel. 12:52:32 Versed 1 mg I.V. was administered by Matthew Veras RN; for sedation; 12:53:20 GUIDE 7FR EBU 4.0 SH catheter ([id number]) opened to sterile field. 12:53:27 7 Fr ebu 4 sh guide catheter was inserted over the wire 12:53:29 Zero performed for pressure channel P1 12:55:10 Heparin Bolus 5000 units I.V. was administered by Matthew Veras RN; for anticoagulation; verified with dr santiago 12:55:49 CHOICE PT Extra Support 182cm wire ([id number]) opened to sterile field. 12:55:51 choice pt es wire advanced. 12:57:38 Fentanyl 50 mcg I.V. was administered by Matthew Veras RN; for sedation; 13:00:43 Wire advanced across lesion. 13:01:17 Place stent Inflation Number: 1 A ALEX RX 3.0 x 08 stent ([id number]) was prepped and advanced across the Prox LAD. The stent was deployed at 13 JAY for 0:10 (min:sec). 13:02:50 Stent catheter was removed intact over wire. 13:03:35 Place stent Inflation Number: 1 A ALEX RX 3.5 x 22 stent ([id number]) was prepped and advanced across the LMCA. The stent was deployed at 17 JAY for 0:10 (min:sec). 13:04:27 Stent catheter was removed intact over wire. 13:05:36 Place stent Inflation Number: 2 A ALEX RX 3.0 x 08 stent ([id number]) was prepped and advanced across the Prox LAD. The stent was deployed at 17 JAY for 0:10 (min:sec). 13:05:52 Stent catheter was removed intact over wire. 13:05:53 Wire removed. 13:05:54 Guide catheter removed. 13:06:02 EXOSEAL 7Fr (EX700) opened to sterile field. 13:06:14 Sheath removed intact; hemostasis achieved with Exoseal to the Right Femoral artery. 13:06:15 Procedure ended.(Physican Out) 13:08:51 Fluoroscopy time 05.00 minutes. 13:09:07 Contrast amount:Isovue 300 106ml. 13:09:09 Sharps counted by scrub and verified by R.N. 13:09:10 Insertion/operative site no bleeding no hematoma. 13:09:13 Post-op/insertion site Right Femoral artery dressed using a 4 x 4 and Tegaderm. 13:09:16 Post right femoral artery:stable, soft, clean and dry 13:09:18 Post Procedure Pulses reassessed and unchanged 13:09:20 Post-procedure physical assessment completed. ASA score P 3 - A patient with severe systemic disease as per Silverio Santiago MD. 13:09:30 Post procedure rhythm: unchanged. 13:09:32 Estimated blood loss: 10 ml 13:09:33 Post procedure instruction explained to patient.Patient verbalizes understanding. 13:09:34 Patient needs reinforcement of post procedure teaching. 13:09:57 Procedure type changed to Cath procedure, Diagnostic procedure, Sedation Charges, Moderate Sedation up to 15 minutes, PCI procedure, Coronary Stent, Coronary Stent Initial x2 13:22:05 Procedure and supply charges have been captured, reviewed, submitted and are correct. 13:22:07 Procedure Complication : No complications 13:22:09 Vital chart was stopped 13:22:10 See physician's report for complete and final results. 13:22:18 Report given to Pre/Post Procedure Room. 13:22:20 Patient transfered to Pre/Post Procedure Room with Stretcher. 13::22 Procedure ended. 13::22 Full Disclosure recording stopped 13:22:25 End room use (Document Last) Intervention Summary Intervention Notes Time ActionType Lesion and Equipment Used Action# Pressure Duration Attributes 13:01:17 Place stent Prox LAD ALEX RX 3.0 x 1 13 00:10 08 stent ([id number]) 13:03:35 Place stent LMCA ALEX RX 3.5 x 1 17 00:10 22 stent ([id number]) 13:05:36 Place stent Prox LAD ALEX RX 3.0 x 2 17 00:10 08 stent ([id number]) Device Usage Item Name Manufacture Quantity Catalog Number Hospital Part Current M inimal Lot# / Charge Number Stock Stock Serial# Code ACIST Syringe Acist 1 73425 378588 153527 913794 2 0 (31804) Medical Systems Inc Bag Decanter Microtek 1 2001S 159574 37113 390665 5 () Medical Inc. Medline Cath Cardinal 1 [id number] 627450 08730 895171 5 Individual Digital ([id number]) DIAGNOSTIC St Samuel 1 623717 846790 904676 089846 3 0 WIRE .035 260cm J wire (911523) ACIST Hand Acist 1 84172 410476 236829 987456 5 Control Medical (98898) Systems Inc ACIST Manifold Acist 1 64710 302652 982487 900759 5 (69454) Medical Systems Inc Tegaderm 4 x 4 3M 1 1626W 766985 534269 392713 5 (1626W) SHEATH 7FR Terumo 1 REH625 603403 305711 479033 5 Luxor (SBH389) Quick Combo coRank Systems 1 94006-710650 621079 258098 899453 5 GUIDE 7FR EBU Medtronic 1 [id number] 153069 636646 693131 0 4.0 SH catheter ([id number]) CHOICE PT [place] 1 [id number] 935484 536607 682482 5 Extra Support Scientific 182cm wire ([id number]) ALEX RX 3.0 x Medtronic 2 [id number] 081040 6695615 401769 5 [id number] 08 stent [id number] ([id number]) ALEX RX 3.5 x Medtronic 1 [id number] 017002 7284931 285828 5 [id number] 22 stent ([id number]) EXOSEAL 7Fr Cardinal 1 EX700 446419 225910 788911 5 (EX700) Health GUIDE 7FR EBU Medtronic 1 [id number] 461975 222122 437125 0 3.5 SH catheter ([id number]) INFLATOR Merit Merit 1 IV8470 899782 175019 697994 1 5 [facility] ([id number]) Signature Audit [place] Stage Time Signature Unsigned Intra-Procedure 01/01/2018 Coleman Neri 1:23:36 PM RT(R) Signatures Monitor : Coleman Neri RT Signature : Date : Time : [place] [id number] [facility] [place] [address]
--- NOTE | ~2018-01-01 | OP ---
PATIENT NAME: PIPPA HDEZ MEDICAL RECORD: [id number] :36 LOCATION:D.CAT ADMISSION DATE: SURGEON: JOSE ANTONIO STACK MD DATE OF OPERATION: 01/01/2018 PROCEDURES: 1. PTCA stent of left main. 2. PTCA stent of LAD. 3. Selective coronary angiography. INDICATION: Angina and coronary artery disease. PROCEDURE PERFORMED: After informed consent was obtained and after detailed description of risks, benefits as well as alternative therapies, the patient elected to proceed with angiogram and angioplasty. The right femoral area was prepped and draped in normal sterile fashion. Right femoral artery was cannulated via modified Seldinger technique with placement of 7-Luxembourgish sheath. All catheters exchanged through this sheath. FINDINGS: The left main has 95% stenosis. LAD has 90% stenosis. Left main was addressed with a 3.5 x 22 mm Kyle. The LAD with a 3.0 x 8 mm Emiliano times 2. Result was 0% residual stenosis. OVERALL IMPRESSION: Successful percutaneous transluminal coronary angioplasty stent of the left main and left anterior descending, both going from 90% to 95% initial stenosis to 0% residual. TRANSINT:[id number] Voice Confirmation ID: [id number] DOCUMENT ID: [id number] JOSE ANTONIO STACK MD at 1752 CC: [id number] DICTATION DATE: 01/01/18 1308 RECREATION THERAPY AIDES TEACHER: 01/01/18 1837 DEP CLI 01/01/18 [place] [id number]
[~2018-01-01 09:58] MED LIST changes: +PEPCID40 MG PO
[2018-01-01 10:53] VITALS: BP 120/71; Ht 185.4 cm; Wt 104.1 kg
[2018-01-01] MEDS ORDERED: BAYER CHEWABLE81 MG PO (14:05)
== END 2018-01-01 17:58 | disposition home or self-care (01) ==
LOC: D.CATH 09:58
DX: I25.110 Atherosclerotic heart disease of native coronary artery with unstable angina pectoris (principal); I10 Essential (primary) hypertension

== ENCOUNTER 2018-03-02 02:33 | Inpatient (IN) | payer MEDICARE, BC ==
[2018-03-02] VITALS (8 sets, daily range): BP systolic 109–145; BP diastolic 55–86; Ht 185.4 cm; Wt 113.4 kg
[~2018-03-02] VITALS: Ht 185.4 cm; Wt 113.4 kg
--- NOTE | ~2018-03-02 | MORECARE ---
CASE MANAGEMENT DISCHARGE SUMMARY PATIENT: PIPPA HDEZ UNIT: [id number] ADM DATE: 03/02/18 AGE: 77 : 38 SEX: M ROOM/BED: D.2226 AUTHOR: GABRIEAL,DOC PHYSICIAN: REFERRING PHYSICIAN: LAN ZENG DO DATE OF SERVICE: 03/06/18 Discharge Plan Patient Name: PIPPA HDEZ Facility: [facility]:[place] : 1940 Planned Disposition: Home with Home Health Anticipated Discharge Date: Discharge Date: Expected LOS: Initial Reviewer: [email or web address] Initial Review Date: 03/02/2018 Generated: 03/06/18 11:36 am Comments DCP- Discharge Planning Updated by [email or web address]: Amairani Rausch on 03/06/18 9:[address] Small cylinders of portable oxygen has been delivered to the patient's room by [facility]. Patient is upset because he states he thought he was getting the small concentrator. He had told me that Dr. Zeng's office was "working on getting him one." Jose Alfredo from [facility] tells the patient it can take a couple of months to get one. Jose Alfredo is going to get him the larger tanks and come back because the patient is going to a foot ball game [employer] and will be gone for several hours. Jose Alfredo states that the patient is satisfied with that at this time. CM will continue to follow and assist with discharge planning/needs. DCP- Discharge Planning Updated by [email or web address]: Amairani Rausch on 03/06/18 9:[address]angela at [facility] services notified that patient is going home and clinical faxed. He is going home with home health today. DCP- Discharge Planning Updated by [email or web address]: Amairani Rausch on 03/06/18 8:[address] Received order for discharge. I called and spoke to Kianna at [facility] because he does not have his portable oxygen yet. States they have not received the signature from Dr. Zeng yet. States the shuttle truck driver has his oxygen in his truck to deliver and will stop at Dr. Zeng's office first for the signature. IMM explained, signed, copy given and original placed in chart. He states he has a nebulizer at home. Denies any other needs. States his ride will be here before noon. CM will continue to follow and assist with discharge planning/needs. DCP- Discharge Planning Updated by [email or web address]: Amairani Rausch on 03/05/18 8:[address] Walk test completed. He qualifies for portable oxygen. I spoke with Tianna at [facility] and faxed clinical to them. Patient states that he would like a list of personal care agencies, I gave him the list from case management folder. CM will continue to follow and assist with discharge planning/needs. DCP- Discharge Planning Updated by [email or web address]: Amairani Rausch on 03/02/18 3:[address] Patient Name: PIPPA HDEZ Admission Status: ER Accout number: [id number] Admission Date: 03-02-2018 : 1940 Admission Diagnosis: Attending: LAN ZENG Current LOS: 1 Anticipated DC Date: Planned Disposition: Home with Home Health Primary Insurance: MEDICARE A & B Discharge Planning Comments: CM met with patient, he is alone in the room. States he is independent with all ADL's. States he does not drive, his live in friend (Felipa) drives him where he needs to go. States he has oxygen that he receives from [facility]. He does not have portable oxygen and states he does not want it unless he can get the smaller machine. He states "Dr. Zeng is working on that." He states [facility] come in once a week for vital signs and health check. Denies needs for further DME. States Felipa will drive him home at discharge. States he sees a pain doctor, Dr Savage, and would like some pain medicine ordered I spoke with SAMEER Paredes, she states they have notified his PCP. CM will continue to follow and assist with discharge planning/needs. Visualization Developer: Amairani Rausch DCPIA - Discharge Planning Initial Assessment Updated by [email or web address]: Amairani Rausch on 03/02/18 4:33 pm * Is the patient Alert and Oriented? Yes * How many steps to enter\\exit or inside your home? 9/0 * PCP Dr. Zeng * [facility] * Preadmission Environment Home with Family * ADLs Independent * Equipment Glucometer Oxygen Walker * List name and contact numbers for known caregivers / representatives who currently or will assist patient after discharge: Felipa Vicente - friend - [phone] Tyrese Kim - friend - unknown number * Verbal permission to speak to the caregivers and representatives has been obtained from the patient. Yes * Community resources currently utilized Home Health * Please name any agencies selected above. [facility] * Additional services required to return to the preadmission environment? No * Can the patient safely return to the preadmission environment? Yes * Has this patient been hospitalized within the prior 30 days at any hospital? No Coverage Notice Reviewer: [id number] Tyron Rausch Notice Issued Date-Time: 03/06/2018 9:30 Notice Type: IM Discharge Notice Notice Delivered To: Patient Relationship to Patient: Self Manager Housekeeping Name: Delivery Method: HAND - Hand Delivered Alesia Days: Prior Verbal Notification: Recipient Understood Notice: Yes Recipient Signature: Yes Med Rec Note Co-signed by Attending: Coverage Notice Comment: IMM explained, signed, copy given, original placed in MR Last DP export: 03/06/18 9:04 Patient Name: PIPPA HDEZ Page [id number] at 1036 All edits/amendments must be made on the electronic document DICTATION DATE: 03/06/18 1036 MODEL BUILDER DISPLAY: INOCENCIO 03/06/18 1036 RPT#: [id number] DC DATE: STATUS: ADM IN [facility] [address] [place] [address] END OF REPORT
--- NOTE | ~2018-03-02 | DS ---
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 DISCHARGE DIAGNOSES: Exacerbation of chronic obstructive pulmonary disease, polycythemia vera, diabetes. HOSPITAL COURSE: The patient was admitted to the Emergency Room with progressive shortness of breath over the past week with his extensive disease, pulmonology consulted. He gradually improved. Had supportive care with oxygen, empiric antibiotics and nebulizer treatments. The patient counseled on smoking cessation. The patient is feeling much better, anxious to go home. Cleared for discharge by pulmonology, ambulating independently. mail manager consulted for portable oxygen. The patient has oxygen at home as well. The patient is discharged home in significantly improved condition. PHYSICAL EXAMINATION: VITAL SIGNS ON DISCHARGE: Temperature 97.5, blood pressure is 132/67, heart rate 90, O2 sats 90% on room air. GENERAL: Alert, oriented, no acute distress. Again, ambulating independently. HEART: Regular rate and rhythm. LUNGS: Clear, mildly prolonged expiratory phase, significantly improved from admission. ABDOMEN: Soft. EXTREMITIES: Present times 4. NEUROLOGIC: Intact. Of note, the patient had renal insufficiency on admission. This improved to his baseline with a creatinine of 1.7. DISPOSITION: The patient is discharged home in significantly improved condition. We will follow up in the clinic in 2 weeks. We will follow up with his access services librarian, Dr. Kwong, and follow up with his mechanical commissioning engineer, Dr. Brunner. See chart for further details. Appreciate pulmonology. TRANSINT:[id number] Voice Confirmation ID: [id number] DOCUMENT ID: [id number] LAN ZENG DO at 1655 CC: [id number] DICTATION DATE: 03/06/18810 BROADCAST ENGINEER: 03/06/18823 DIS IN 03/06/18 [place] [address] [place] [address]
--- NOTE | ~2018-03-02 | MORECARE ---
CASE MANAGEMENT DISCHARGE SUMMARY PATIENT: PIPPA HDEZ UNIT: [id number] ADM DATE: 03/02/18 AGE: 77 : 38 SEX: M ROOM/BED: D.2226 AUTHOR: GABRIELA,DOC PHYSICIAN: REFERRING PHYSICIAN: LAN ZENG DO DATE OF SERVICE: 03/06/18 Discharge Plan Patient Name: PIPPA HDEZ [facility] [facility] 1940 Planned Disposition: Home with Home Health Anticipated Discharge Date: Discharge Date: Expected LOS: Initial Reviewer: [email or web address] Initial Review Date: 03/02/2018 Generated: 03/06/18 2:16 pm Comments DCP- Discharge Planning Updated by [id number]: Amairani Rausch on 03/06/18 12:[address] Questioned about nebulizer. States he has a nebulizer machine that belonged to his . DCP- Discharge Planning Updated by [id number]: Amairani Rausch on 03/06/18 9:[address] Small cylinders of portable oxygen has been delivered to the patient's room by [facility]. Patient is upset because he states he thought he was getting the small concentrator. He had told me that Dr. Zeng's office was "working on getting him one." Jose Alfredo from [facility] tells the patient it can take a couple of months to get one. Jose Alfredo is going to get him the larger tanks and come back because the patient is going to a [place] ball game [place] and will be gone for several hours. Jose Alfredo states that the patient is satisfied with that at this time. CM will continue to follow and assist with discharge planning/needs. DCP- Discharge Planning Updated by [id number]: Amairani Rausch on 03/06/18 9:[address] Rosangela at [facility] notified that patient is going home and clinical faxed. He is going home with home health today. DCP- Discharge Planning Updated by [id number]: Amairani Rausch on 03/06/18 8:[address] Received order for discharge. I called and spoke to Kianna at [facility] because he does not have his portable oxygen yet. States they have not received the signature from Dr. Zeng yet. States the regional company hazmat tanker driver has his oxygen in his truck to deliver and will stop at Dr. Zeng's office first for the signature. IMM explained, signed, copy given and original placed in chart. He states he has a nebulizer at home. Denies any other needs. States his ride will be here before noon. CM will continue to follow and assist with discharge planning/needs. DCP- Discharge Planning Updated by [email or web address]: Amairani Staplesponcho on 03/05/18 8:[address] Walk test completed. He qualifies for portable oxygen. I spoke with Tianna at [facility] and faxed clinical to them. Patient states that he would like a list of personal care agencies, I gave him the list from case management folder. CM will continue to follow and assist with discharge planning/needs. DCP- Discharge Planning Updated by [id number]: Amairani Shalom on 03/02/18 3:[address] Patient Name: PIPPA HDEZ Admission Status: ER Accout number: [id number] Admission Date: 03-02-2018 : 1940 Admission Diagnosis: Attending: LAN ZENG Current LOS: 1 Anticipated DC Date: Planned Disposition: Home with Home Health Primary Insurance: MEDICARE A & B Discharge Planning Comments: CM met with patient, he is alone in the room. States he is independent with all ADL's. States he does not drive, his live in friend (Felipa) drives him where he needs to go. States he has oxygen that he receives from [facility]. He does not have portable oxygen and states he does not want it unless he can get the smaller machine. He states "Dr. Zeng is working on that." He states [facility] come in once a week for vital signs and health check. Denies needs for further DME. States Felipa will drive him home at discharge. States he sees a pain doctor, Dr Savage, and would like some pain medicine ordered I spoke with SAMEER Paredes, she states they have notified his PCP. CM will continue to follow and assist with discharge planning/needs. Publishing Specialist: Amairani Rausch DCPIA - Discharge Planning Initial Assessment Updated by [id number]: Amairani Rausch on 03/02/18 4:33 pm * Is the patient Alert and Oriented? Yes * How many steps to enter\\exit or inside your home? 9/0 * PCP Dr. Zeng * [facility] [address] * Preadmission Environment Home with Family * ADLs Independent * Equipment Glucometer Oxygen Walker * List name and contact numbers for known caregivers / representatives who currently or will assist patient after discharge: Felipa Vicente - friend - [phone] Tyrese Kim - friend - unknown number * Verbal permission to speak to the caregivers and representatives has been obtained from the patient. Yes * Community resources currently utilized Home Health * Please name any agencies selected above. [facility] * Additional services required to return to the preadmission environment? No * Can the patient safely return to the preadmission environment? Yes * Has this patient been hospitalized within the prior 30 days at any hospital? No Coverage Notice Reviewer: [id number] Tyron Rausch Notice Issued Date-Time: 03/06/2018 9:30 Notice Type: IM Discharge Notice Notice Delivered To: Patient Relationship to Patient: Self Mold Parter Name: Delivery Method: HAND - Hand Delivered Alesia Days: Prior Verbal Notification: Recipient Understood Notice: Yes Recipient Signature: Yes Med Rec Note Co-signed by Attending: Coverage Notice Comment: IMM explained, signed, copy given, original placed in MR Last DP export: 03/06/18 9:36 Patient Name: PIPPA HDEZ Page [id number] at 1316 All edits/amendments must be made on the electronic document DICTATION DATE: 03/06/18 131 SMALL BOAT ENGINEER: INOCENCIO 03/06/18 1315 RPT#: [id number] DC DATE: STATUS: ADM IN [facility] [address] [place] [address] END OF REPORT
--- NOTE | ~2018-03-02 | MORECARE ---
CASE MANAGEMENT DISCHARGE SUMMARY PATIENT: PIPPA HDEZ UNIT: [id number] ADM DATE: 03/02/18 AGE: 77 : 38 SEX: M ROOM/BED: D.2226 AUTHOR: FANTA OCHOA PHYSICIAN: REFERRING PHYSICIAN: LAN ZENG DO DATE OF SERVICE: 03/06/18 Discharge Plan Patient Name: PIPPA HDEZ [facility] [facility] 1940 Planned Disposition: Home with Home Health Anticipated Discharge Date: Discharge Date: 03/06/2018 Expected LOS: 0 Initial Reviewer: [email or web address] Initial Review Date: 03/02/2018 Generated: 03/06/18 5:58 pm Comments DCP- Discharge Planning Updated by [id number]: Amairani Rausch on 03/06/18 12:[address] Questioned about nebulizer. States he has a nebulizer machine that belonged to his . DCP- Discharge Planning Updated by [id number]: Amairani Rausch on 03/06/18 9:[address] Small cylinders of portable oxygen has been delivered to the patient's room by [facility]. Patient is upset because he states he thought he was getting the small concentrator. He had told me that Dr. Zeng's office was "working on getting him one." Jose Alfredo from [facility] tells the patient it can take a couple of months to get one. Jose Alfredo is going to get him the larger tanks and come back because the patient is going [place] and will be gone for several hours. Jose Alfredo states that the patient is satisfied with that at this time. CM will continue to follow and assist with discharge planning/needs. DCP- Discharge Planning Updated by [id number]: Amairani Rausch on 03/06/18 9:[address] Rosangela at [facility] notified that patient is going home and clinical faxed. He is going home with home health today. DCP- Discharge Planning Updated by [email or web address]: Amairani Rausch on 03/06/18 8:[address] Received order for discharge. I called and spoke to Kianna at [facility] because he does not have his portable oxygen yet. States they have not received the signature from Dr. Zeng yet. States the chassis driver has his oxygen in his truck to deliver and will stop at Dr. Zeng's office first for the signature. IMM explained, signed, copy given and original placed in chart. He states he has a nebulizer at home. Denies any other needs. States his ride will be here before noon. CM will continue to follow and assist with discharge planning/needs. DCP- Discharge Planning Updated by [id number]: Amairani Shalom on 03/05/18 8:[address] Walk test completed. He qualifies for portable oxygen. I spoke with Tianna at [facility] and faxed clinical to them. Patient states that he would like a list of personal care agencies, I gave him the list from case management folder. CM will continue to follow and assist with discharge planning/needs. DCP- Discharge Planning Updated by [id number]: Amairani Rausch on 03/02/18 3:[address] Patient Name: PIPPA HDEZ Admission Status: ER Accout number: [id number] Admission Date: 03-02-2018 : 1940 Admission Diagnosis: Attending: LAN ZENG Current LOS: 1 Anticipated DC Date: Planned Disposition: Home with Home Health Primary Insurance: MEDICARE A & B Discharge Planning Comments: CM met with patient, he is alone in the room. States he is independent with all ADL's. States he does not drive, his live in friend (Felipa) drives him where he needs to go. States he has oxygen that he receives from [facility]. He does not have portable oxygen and states he does not want it unless he can get the smaller machine. He states "Dr. Zeng is working on that." He states [facility] come in once a week for vital signs and health check. Denies needs for further DME. States Felipa will drive him home at discharge. States he sees a pain doctor, Dr Savage, and would like some pain medicine ordered I spoke with SAMEER Paredes, she states they have notified his PCP. CM will continue to follow and assist with discharge planning/needs. Senior Telecommunications Specialist: Amairani Rausch DCPIA - Discharge Planning Initial Assessment Updated by [email or web address]: Amairani Rausch on 03/02/18 4:33 pm * Is the patient Alert and Oriented? Yes * How many steps to enter\\exit or inside your home? 9/0 * PCP Dr. Zeng * Pharmacy [facility] [address] * Preadmission Environment Home with Family * ADLs Independent * Equipment Glucometer Oxygen Walker * List name and contact numbers for known caregivers / representatives who currently or will assist patient after discharge: Felipa Vicente - friend - [phone] Tyrese Kim - friend - unknown number * Verbal permission to speak to the caregivers and representatives has been obtained from the patient. Yes * Community resources currently utilized Home Health * Please name any agencies selected above. [facility] * Additional services required to return to the preadmission environment? No * Can the patient safely return to the preadmission environment? Yes * Has this patient been hospitalized within the prior 30 days at any hospital? No Coverage Notice Reviewer: [id number] Tyron Rausch Notice Issued Date-Time: 03/06/2018 9:30 Notice Type: IM Discharge Notice Notice Delivered To: Patient Relationship to Patient: Self Medical Record Administrator Name: Delivery Method: HAND - Hand Delivered Alesia Days: Prior Verbal Notification: Recipient Understood Notice: Yes Recipient Signature: Yes Med Rec Note Co-signed by Attending: Coverage Notice Comment: IMM explained, signed, copy given, original placed in MR Last DP export: 03/06/18 12:16 Patient Name: PIPPA HDEZ Page [id number] at 1658 All edits/amendments must be made on the electronic document DICTATION DATE: 03/06/181656 CONFERENCE SERVICE COORDINATOR: INOCENCIO 03/06/181656 RPT#: [id number] DC DATE:03/06/18 STATUS: DIS IN [facility] [address] [place] [address] END OF REPORT
--- NOTE | ~2018-03-02 | MORECARE ---
CASE MANAGEMENT DISCHARGE SUMMARY PATIENT: PIPPA HDEZ UNIT: [id number] ADM DATE: 03/02/18 AGE: 77 : 38 SEX: M ROOM/BED: D.2226 AUTHOR: FANTA OCHOA PHYSICIAN: REFERRING PHYSICIAN: LAN ZENG DO DATE OF SERVICE: 03/06/18 Discharge Plan Patient Name: PIPPA HDEZ Facility: [facility]:[place] : 1940 Planned Disposition: Home with Home Health Anticipated Discharge Date: Discharge Date: Expected LOS: Initial Reviewer: [email or web address] Initial Review Date: 03/02/2018 Generated: 03/06/18 10:44 am Comments DCP- Discharge Planning Updated by [id number]: Amairani Shalom on 03/06/18 8:[address] Received order for discharge. I called and spoke to Kianna at [facility] because he does not have his portable oxygen yet. States they have not received the signature from Dr. Zeng yet. States the truck driver supervisor has his oxygen in his truck to deliver and will stop at Dr. Zeng's office first for the signature. IMM explained, signed, copy given and original placed in chart. He states he has a nebulizer at home. Denies any other needs. States his ride will be here before noon. CM will continue to follow and assist with discharge planning/needs. DCP- Discharge Planning Updated by [email or web address]: Amairani Shalom on 03/05/18 8:[address] Walk test completed. He qualifies for portable oxygen. I spoke with Tianna at [facility] and faxed clinical to them. Patient states that he would like a list of personal care agencies, I gave him the list from case management folder. CM will continue to follow and assist with discharge planning/needs. DCP- Discharge Planning Updated by [email or web address]: Amairani Staplesponcho on 03/02/18 3:[address] Patient Name: PIPPA HDEZ Admission Status: ER Accout number: [id number] Admission Date: 03-02-2018 : 1940 Admission Diagnosis: Attending: LAN ZENG Current LOS: 1 Anticipated DC Date: Planned Disposition: Home with Home Health Primary Insurance: MEDICARE A & B Discharge Planning Comments: CM met with patient, he is alone in the room. States he is independent with all ADL's. States he does not drive, his live in friend (Felipa) drives him where he needs to go. States he has oxygen that he receives from [facility]. He does not have portable oxygen and states he does not want it unless he can get the smaller machine. He states "Dr. Zeng is working on that." He states [facility] come in once a week for vital signs and health check. Denies needs for further DME. States Felipa will drive him home at discharge. States he sees a pain doctor, Dr Savage, and would like some pain medicine ordered I spoke with SAMEER Paredes, she states they have notified his PCP. CM will continue to follow and assist with discharge planning/needs. Metal Cnc Operator: Amairani Rausch DCPIA - Discharge Planning Initial Assessment Updated by [email or web address]: Amairani Rausch on 03/02/18 4:33 pm * Is the patient Alert and Oriented? Yes * How many steps to enter\\exit or inside your home? 9/0 * PCP Dr. Zeng * [facility] [address] [facility] * Preadmission Environment Home with Family * ADLs Independent * Equipment Glucometer Oxygen Walker * List name and contact numbers for known caregivers / representatives who currently or will assist patient after discharge: Felipa Vicente - friend - [phone] Tyrese Kim - friend - unknown number * Verbal permission to speak to the caregivers and representatives has been obtained from the patient. Yes * Community resources currently utilized Home Health * Please name any agencies selected above. [facility] * Additional services required to return to the preadmission environment? No * Can the patient safely return to the preadmission environment? Yes * Has this patient been hospitalized within the prior 30 days at any hospital? No Coverage Notice Reviewer: [id number] - Amairani Rausch Notice Issued Date-Time: 03/06/2018 9:30 Notice Type: IM Discharge Notice Notice Delivered To: Patient Relationship to Patient: Self Medical Information Officer Name: Delivery Method: HAND - Hand Delivered Alesia Days: Prior Verbal Notification: Recipient Understood Notice: Yes Recipient Signature: Yes Med Rec Note Co-signed by Attending: Coverage Notice Comment: IMM explained, signed, copy given, original placed in MR Last DP export: 03/05/18 8:55 Patient Name: PIPPA HDEZ Page [id number] at 0944 All edits/amendments must be made on the electronic document DICTATION DATE: 03/06/18942 EMPLOYMENT ATTORNEY: INOCENCIO 03/06/18942 RPT#: [id number] DC DATE: STATUS: ADM IN [facility] [address] [place] [address] END OF REPORT
--- NOTE | ~2018-03-02 | MORECARE ---
CASE MANAGEMENT DISCHARGE SUMMARY PATIENT: PIPPA HDEZ UNIT: [id number] ADM DATE: 03/02/18 AGE: 77 : 38 SEX: M ROOM/BED: D.2226 AUTHOR: FANTA OCHOA PHYSICIAN: REFERRING PHYSICIAN: LAN ZENG DO DATE OF SERVICE: 03/06/18 Discharge Plan Patient Name: PIPPA HDEZ Facility: [facility]:[place] : 1940 Planned Disposition: Home with Home Health Anticipated Discharge Date: Discharge Date: Expected LOS: Initial Reviewer: [email or web address] Initial Review Date: 03/02/2018 Generated: 03/06/18 11:04 am Comments DCP- Discharge Planning Updated by [id number]: Amairani Rausch on 03/06/18 9:[address] Rosangela at [facility] notified that patient is going home and clinical faxed. He is going home with home health today. DCP- Discharge Planning Updated by [id number]: Amairani Rausch on 03/06/18 8:[address] Received order for discharge. I called and spoke to Kianna at [facility] because he does not have his portable oxygen yet. States they have not received the signature from Dr. Zeng yet. States the set key driver has his oxygen in his truck to deliver and will stop at Dr. Zeng's office first for the signature. IMM explained, signed, copy given and original placed in chart. He states he has a nebulizer at home. Denies any other needs. States his ride will be here before noon. CM will continue to follow and assist with discharge planning/needs. DCP- Discharge Planning Updated by [id number]: Amairani Rausch on 03/05/18 8:[address] Walk test completed. He qualifies for portable oxygen. I spoke with Tianna at [facility] and faxed clinical to them. Patient states that he would like a list of personal care agencies, I gave him the list from case management folder. CM will continue to follow and assist with discharge planning/needs. DCP- Discharge Planning Updated by [email or web address]: Amairani Rausch on 03/02/18 3:[address] Patient Name: WADE HDEZ Admission Status: ER Accout number: [id number] Admission Date: 03-02-2018 : 1940 Admission Diagnosis: Attending: LAN ZENG Current LOS: 1 Anticipated DC Date: Planned Disposition: Home with Home Health Primary Insurance: MEDICARE A & B Discharge Planning Comments: CM met with patient, he is alone in the room. States he is independent with all ADL's. States he does not drive, his live in friend (Felipa) drives him where he needs to go. States he has oxygen that he receives from [facility]. He does not have portable oxygen and states he does not want it unless he can get the smaller machine. He states "Dr. Zeng is working on that." He states [facility] come in once a week for vital signs and health check. Denies needs for further DME. States Felipa will drive him home at discharge. States he sees a pain doctor, Dr Savage, and would like some pain medicine ordered I spoke with SAMEER Paredes, she states they have notified his PCP. CM will continue to follow and assist with discharge planning/needs. Audio Visual Engineer: Amairani Rausch DCPIA - Discharge Planning Initial Assessment Updated by [email or web address]: Amairani Rausch on 03/02/18 4:33 pm * Is the patient Alert and Oriented? Yes * How many steps to enter\\exit or inside your home? 9/0 * PCP Dr. Zeng * [facility] * Preadmission Environment Home with Family * ADLs Independent * Equipment Glucometer Oxygen Walker * List name and contact numbers for known caregivers / representatives who currently or will assist patient after discharge: Felipa Vicente - friend - [phone] Tyrese Kim - friend - unknown number * Verbal permission to speak to the caregivers and representatives has been obtained from the patient. Yes * Community resources currently utilized Home Health * Please name any agencies selected above. [facility] * Additional services required to return to the preadmission environment? No * Can the patient safely return to the preadmission environment? Yes * Has this patient been hospitalized within the prior 30 days at any hospital? No External Providers External Provider: [facility] Next Contact Date: Service Request Date: Service Type: Resolution: Reviewer: Comments: Coverage Notice Reviewer: [id number] - Amairani Rausch Notice Issued Date-Time: 03/06/2018 9:30 Notice Type: IM Discharge Notice Notice Delivered To: Patient Relationship to Patient: Self Sleeve Maker Name: Delivery Method: HAND - Hand Delivered Alesia Days: Prior Verbal Notification: Recipient Understood Notice: Yes Recipient Signature: Yes Med Rec Note Co-signed by Attending: Coverage Notice Comment: IMM explained, signed, copy given, original placed in MR Last DP export: 03/06/18 8:44 Patient Name: PIPPA HDEZ Page [id number] at 1004 All edits/amendments must be made on the electronic document DICTATION DATE: 03/06/18 1004 COAL UNLOADER: INOCENCIO 03/06/18 1004 RPT#: [id number] DC DATE: STATUS: ADM IN [facility] [address] [place] [address] END OF REPORT
--- NOTE | ~2018-03-02 | HP ---
PATIENT: PIPPA HDEZ MEDICAL RECORD: [id number] ACCOUNT: [id number] LOCATION:D.MS [id number] : 38 ADMISSION DATE: 03/02/18 PCP: No PCP HISTORY AND PHYSICAL EXAMINATION HISTORY OF PRESENT ILLNESS: A 77-year-old male who presents to the Emergency Room with progressive shortness of breath, cough. Denies fever or chills. Cough is nonproductive. PAST MEDICAL HISTORY: Significant for COPD - end stage supplemental O2 dependent at home, continues to smoke 1 pack of cigarettes daily. Also, a history of diabetes, hypertension, polycythemia vera, neuropathy, coronary artery disease. HOME MEDICATIONS: Potassium chloride, gabapentin, methocarbamol, famotidine, aspirin, glimepiride, losartan, amlodipine, atorvastatin, Plavix, Ventolin inhaler, DuoNebs. PAST SURGICAL HISTORY: Stent placement. Also, sees hematology for therapeutic phlebotomy. SOCIAL HISTORY: Denies alcohol. Again, admits 50+ pack-year history of nicotine, continues to smoke a pack a day. REVIEW OF SYSTEMS: GENERAL: No acute change in weight or appetite. HEENT: No cephalalgia, visual changes, tinnitus, epistaxis, or dysphagia. CARDIOVASCULAR: Denies chest pain. Does admit to shortness of breath. PULMONARY: Denies hemoptysis, denies night sweats. Does admit to nonproductive cough, shortness of breath, gradual onset, progressively worse. GASTROINTESTINAL: Denies hematemesis, hematochezia or melena. GENITOURINARY: Denies dysuria. MUSCULOSKELETAL: No acute changes. ENDOCRINE: Denies polyuria, polydipsia or polyphagia. PHYSICAL EXAMINATION: VITAL SIGNS: Temp 98.6, blood pressure 121/55, heart rate 116, respirations 18, O2 sats 91% with oxygen at 2 liters. HEENT: Head normocephalic, atraumatic. Eyes: Pupils are equally round and reactive to light and accommodation. Extraocular muscles intact. Conjunctivae were not injected. Ears: Canals patent, TMs are intact. Nose: Nares patent without drainage. Throat: No erythema, no exudates. NECK: Supple. No lymphadenopathy, no JVD. HEART: Regular, tachycardic. LUNGS: Poor air movement. Prolonged expiratory phase. Nonlabored with supplemental O2. ABDOMEN: Soft, nontender. Bowel sounds all 4 quadrants. EXTREMITIES: Present times 4. NEUROLOGIC: Intact with no focal deficits. SKIN: Warm and dry. No rash. LABORATORY DATA: Chest x-ray: No acute process. ABG, pH 7.34, pCO2 48.6, pO2 of 55, O2 sat 87.2. HISTORY AND PHYSICAL [id number] HDEZPIPPA JEFFERSON CBC: White count 9.6, hemoglobin 20, hematocrit 56.5, platelets 107. PT 16.5, INR is 1.39. D-dimer is elevated at 0.61. BUN 22, creatinine 1.8, sodium 138, potassium 3.8, chloride 99, bicarbonate 26.9. LFTs essentially normal. Alkaline phosphatase mildly elevated at 123. Cardiac enzymes remained negative. ASSESSMENT AND PLAN: 1. Exacerbation of chronic obstructive pulmonary disease, IV Solu-MedrolIvet, consult pulmonology. 2. Elevated D-dimer, prophylactic Lovenox. We will wait until pulmonology evaluation to decide whether to do V/Q scan or CT angiogram if indicated. 3. Polycythemia vera, Lovenox as above. Aspirin. 4. Nicotine dependence. Counseled on smoking cessation. Nicoderm patch placed. 5. Diabetes. Sliding-scale insulin. 6. We will also add empiric Zithromax p.o. with the exacerbation of the chronic obstructive pulmonary disease. TRANSINT:[id number] Voice Confirmation ID: [id number] DOCUMENT ID: [id number] LAN ZENG DO at 0749 CC: [id number] DICTATION DATE: 03/02/18951 MOVIE SHOT CAMERAMAN: 03/02/18 1045 ADM IN [facility] [address] [id number]
[~2018-03-02 02:33] MED LIST changes: +BAYER CHEWABLE81 MG PO
[2018-03-02 02:56] LABS: BASOPHILS 0.2 % (0-2); EOSINOPHILS 1.9 % (0-7); HEMATOCRIT 56.5 % (42.0-54.0); IMMATURE GRANULOCYTES 0.3 % (0-5); LYMPHOCYTES 14.9 % (15-50); MCH 33.3 pg (26.0-34.0); MCHC 35.4 g/dL (31.0-37.0); MCV 94.2 fL (80.0-100.0); MEAN PLATELET VOLUME 12.3 fL (7.4-10.4); MONOCYTES 7.4 % (2-11); NEUTROPHILS 75.3 % (40-80); PLATELET COUNT 107 10x3/uL (130-400); RDW 13.5 % (11.5-14.5); WBC 9.6 10x3/uL (4.8-10.8)
[2018-03-02 03:03] LABS: INR 1.39 (0.85-1.17); PROTIME 16.5 SECONDS (11.6-15.0)
[2018-03-02 03:04] LABS: APTT 68.3 SECONDS (22.8-39.4)
[2018-03-02 03:08] LABS: ALBUMIN 3.5 g/dL (3.4-5.0); ALKALINE PHOSPHATASE 123 U/L (46-116); ALT (SGPT) 21 U/L (10-68); BILIRUBIN - TOTAL 0.73 mg/dL (0.2-1.3); CALC OSMOLALITY 286 mosm/kg (275-300); CALCIUM 9.3 mg/dL (8.5-10.1); CARBON DIOXIDE 26.9 mmol/L (21.0-32.0); CHLORIDE - SERUM 99 mmol/L (98-107); CREATININE - SERUM 1.8 mg/dL (0.6-1.3); POTASSIUM - SERUM 3.8 mmol/L (3.5-5.1); PROTEIN - SERUM 8.2 g/dL (6.4-8.2); SODIUM 138 mmol/L (136-145); UREA NITROGEN 22 mg/dL (7-18); eGFR NON AFRICAN AMERICAN 39 mL/min (90-120)
[2018-03-02 03:11] LABS: GLUCOSE 237 mg/dL (74-106)
[2018-03-02 03:19] LABS: CKMB 2.5 U/L (0.0-3.6); CREATINE KINASE 92 UL (21-232); PRO BNP 367 pg/mL (0-450)
[2018-03-02 03:20] LABS: TROPONIN-I < 0.017 ng/mL (0.000-0.060)
[2018-03-02] MEDS ORDERED: NORCO 10-325 TA1 TAB PO (15:56)
[2018-03-02] MEDS ORDERED: MUCINEX SINUS (16:16)
[2018-03-03 04:52] LABS: ANION GAP 13.7 mmol/L (8-16); CALCIUM 9.3 mg/dL (8.5-10.1); CARBON DIOXIDE 28.8 mmol/L (21.0-32.0); MAGNESIUM - SERUM 2.2 mg/dL (1.8-2.4); POTASSIUM - SERUM 3.5 mmol/L (3.5-5.1)
[2018-03-03 04:53] LABS: BASOPHILS 0 % (0-2); EOSINOPHILS 0 % (0-7); HEMATOCRIT 51.2 % (42.0-54.0); HEMOGLOBIN 17.8 g/dL (13.5-17.5); IMMATURE GRANULOCYTES 0.2 % (0-5); LYMPHOCYTES 6.2 % (15-50); MCH 32.8 pg (26.0-34.0); MCHC 34.8 g/dL (31.0-37.0); MCV 94.5 fL (80.0-100.0); MEAN PLATELET VOLUME 12.5 fL (7.4-10.4); MONOCYTES 2.4 % (2-11); NEUTROPHILS 91.2 % (40-80); PLATELET COUNT 101 10x3/uL (130-400); RBC 5.42 10x6/uL (4.20-6.10); RDW 13.7 % (11.5-14.5); WBC 9.7 10x3/uL (4.8-10.8)
[2018-03-03 05:52] VITALS: BP 92/51
[2018-03-03 09:44] VITALS: BP 149/59
[2018-03-03 14:44] VITALS: BP 128/74
[2018-03-03 20:00] VITALS: BP 127/65
[2018-03-04 04:59] LABS: BASOPHILS 0.1 % (0-2); EOSINOPHILS 0 % (0-7); HEMATOCRIT 51.5 % (42.0-54.0); HEMOGLOBIN 18.1 g/dL (13.5-17.5); IMMATURE GRANULOCYTES 0.4 % (0-5); LYMPHOCYTES 5.8 % (15-50); MCHC 35.1 g/dL (31.0-37.0); MEAN PLATELET VOLUME 13.1 fL (7.4-10.4); MONOCYTES 3.7 % (2-11); PLATELET COUNT 102 10x3/uL (130-400); RBC 5.48 10x6/uL (4.20-6.10); RDW 13.8 % (11.5-14.5)
[2018-03-04 05:03] LABS: WBC 13.7 10x3/uL (4.8-10.8)
[2018-03-04 05:16] LABS: ANION GAP 17.7 mmol/L (8-16); CALCIUM 9.5 mg/dL (8.5-10.1); CREATININE - SERUM 1.9 mg/dL (0.6-1.3); POTASSIUM - SERUM 3.7 mmol/L (3.5-5.1)
[2018-03-04 06:02] VITALS: BP 95/57
[2018-03-04 09:19] VITALS: BP 136/67
[2018-03-04 11:36] VITALS: BP 141/65
[2018-03-04 15:30] VITALS: BP 133/61
[2018-03-04 20:20] VITALS: BP 115/65
[2018-03-05 04:41] LABS: ANION GAP 15.2 mmol/L (8-16); CALCIUM 9.8 mg/dL (8.5-10.1); CARBON DIOXIDE 27.3 mmol/L (21.0-32.0); CREATININE - SERUM 1.9 mg/dL (0.6-1.3); MAGNESIUM - SERUM 2.5 mg/dL (1.8-2.4); POTASSIUM - SERUM 3.5 mmol/L (3.5-5.1)
[2018-03-05 05:28] VITALS: BP 149/71
[2018-03-05 05:34] LABS: BASOPHILS 0.1 % (0-2); EOSINOPHILS 0 % (0-7); HEMATOCRIT 54.9 % (42.0-54.0); HEMOGLOBIN 18.6 g/dL (13.5-17.5); IMMATURE GRANULOCYTES 0.5 % (0-5); LYMPHOCYTES 13.1 % (15-50); MCH 32.3 pg (26.0-34.0); MCHC 33.9 g/dL (31.0-37.0); MCV 95.5 fL (80.0-100.0); MEAN PLATELET VOLUME 12.8 fL (7.4-10.4); MONOCYTES 8.7 % (2-11); NEUTROPHILS 77.6 % (40-80); PLATELET COUNT 92 10x3/uL (130-400); RBC 5.75 10x6/uL (4.20-6.10); RDW 14.1 % (11.5-14.5); WBC 11.5 10x3/uL (4.8-10.8)
[2018-03-05 06:51] LABS: PLATELET ESTIMATE DECREASED
[2018-03-05 10:20] VITALS: BP 103/70
[2018-03-05 15:20] VITALS: BP 116/78
[2018-03-05 21:37] VITALS: BP 104/60
[2018-03-06 04:36] LABS: BASOPHILS 0.1 % (0-2); EOSINOPHILS 0 % (0-7); HEMATOCRIT 52.6 % (42.0-54.0); HEMOGLOBIN 18.5 g/dL (13.5-17.5); IMMATURE GRANULOCYTES 0.4 % (0-5); LYMPHOCYTES 8.1 % (15-50); MCHC 35.2 g/dL (31.0-37.0); MCV 93.9 fL (80.0-100.0); MEAN PLATELET VOLUME 13.7 fL (7.4-10.4); MONOCYTES 4.8 % (2-11); NEUTROPHILS 86.6 % (40-80); PLATELET COUNT 86 10x3/uL (130-400); RDW 13.9 % (11.5-14.5)
[2018-03-06 04:38] LABS: WBC 8.5 10x3/uL (4.8-10.8)
[2018-03-06 04:39] LABS: CALCIUM 9.2 mg/dL (8.5-10.1); CARBON DIOXIDE 26.7 mmol/L (21.0-32.0); CREATININE - SERUM 1.7 mg/dL (0.6-1.3); POTASSIUM - SERUM 3.7 mmol/L (3.5-5.1)
[2018-03-06 06:08] VITALS: BP 132/67
[2018-03-06] MEDS ORDERED: VIBRAMYCIN 100100 MG PO (08:03)
[2018-03-06] MEDS ORDERED: PREDNISONE20 MG PO (08:05)
[2018-03-06 09:01] VITALS: BP 123/60
[2018-03-06] MEDS ORDERED: AZELASTINE137 MCG/0. (12:49)
[2018-03-06] MEDS ORDERED: DALIRESP500 MCG PO (12:49)
[2018-03-06] MEDS ORDERED: CHANTIX0.5 MG PO (12:51)
[2018-03-06] MEDS ORDERED: SYMBICORT 16010.2 GM INH (12:52)
[2018-03-06] MEDS ORDERED: SINGULAIR10 MG PO (12:52)
[2018-03-06] MEDS ORDERED: BENZONATATE200 MG PO (12:53)
[2018-03-06] MEDS ORDERED: FLUTICASONE PRO16 GM (12:53)
[2018-03-09 17:11] LABS: AEROBE ID Final report (()); RESULT 1 Escherichia coli (())
== END 2018-03-06 13:51 | disposition home or self-care (01) | DRG 189 ==
LOC: D.ER 02:33 → D.MS 04:53
PROVIDERS: Family Medicine; Internal Medicine Pulmonary Disease
DX: J96.01 Acute respiratory failure with hypoxia (principal); J44.1 Chronic obstructive pulmonary disease with (acute) exacerbation; F17.213 Nicotine dependence, cigarettes, with withdrawal; D45 Polycythemia vera; I25.10 Atherosclerotic heart disease of native coronary artery without angina pectoris; E11.22 Type 2 diabetes mellitus with diabetic chronic kidney disease; I12.9 Hypertensive chronic kidney disease with stage 1 through stage 4 chronic kidney disease, or unspecified chronic kidney disease; N18.9 Chronic kidney disease, unspecified; D69.6 Thrombocytopenia, unspecified; I73.9 Peripheral vascular disease, unspecified; M19.90 Unspecified osteoarthritis, unspecified site; K40.20 Bilateral inguinal hernia, without obstruction or gangrene, not specified as recurrent

== ENCOUNTER → 2018-04-27 13:47 | Outpatient (CLI) | payer MEDICARE, BC ==
[2018-03-02 13:10] VITALS: BMI 32.9
[~2018-04-27 13:47] MED LIST changes: +AZELASTINE137 MCG/0.; +BENZONATATE200 MG PO; +CHANTIX0.5 MG PO; +DALIRESP500 MCG PO; +FLUTICASONE PRO16 GM; +MUCINEX SINUS; +NORCO 10-325 TA1 TAB PO; +PREDNISONE20 MG PO; +SINGULAIR10 MG PO; +SYMBICORT 16010.2 GM INH; +VIBRAMYCIN 100100 MG PO
== END | disposition home or self-care (01) ==
LOC: D.RT 13:47
DX: J44.9 Chronic obstructive pulmonary disease, unspecified (principal)

== ENCOUNTER 2018-08-04 09:25 | Outpatient (CLI) | payer MEDICARE, BC ==
[~2018-08-04] VITALS: Ht 185.4 cm; Wt 100.9 kg
--- NOTE | ~2018-08-04 | HEMODYNAMI ---
PATIENT:PIPPA HDEZ MEDICAL RECORD: [id number] : 36 LOCATION:D.CAT ADMISSION DATE: 08/04/18 Generatedon:08/04/201811:32 Patient name: PIPPA HDEZ Patient #: [id number] SSN: : 1 Date of study: 08/04/2018 Page: Of Hemodynamic Procedure Report Patient Data Patient Demographics Procedure consent was obtained First Name: PIPPA Gender: Male Last Name: KETTY : 1940 [facility] Initial: LI Age: 78 year(s) Patient #: [id number] Race: Unknown Additional ID: [id number] Contact details Address: [facility] [address] State: [place] City: [place] Zip code: [address] Past Medical History Allergies Allergen Reaction Date Comments Reported Other allergy 12/05/2017 sulfa Other allergy 01/01/2018 sulfa Admission Admission Data Admission Date: 08/04/2018 Admission Time: 9:25 Admit Source: Other Weight (lbs.): 222 Weight (kg.): 100.7 Lab Results Lab Result Date: 08/04/2018 Lab Result Time: 0:00 CBC Name Units Result Min Max Hemoglobin g/dl 17.3 --(---*)-- 13.5 17.5 Procedure Procedure Types Cath Procedure Peripheral Cath Diagnostic Procedure [employer] Attorney Peripheral Procedures Vpinb-Uzyiqrb-Kai-Off Peripheral vascular Intervention Stent Stent Iliac w/plasty Initial Procedure Description Procedure Date Procedure Date: 08/04/2018 Procedure Start Time: 11:07 Procedure End Time: 11:27 Procedure Staff Name Function Silverio Santiago MD Performing Physician Nemo Sevilla RT Monitor Matthew Veras RN Nurse Leonarda Silveira RT Scrub Iggy Barton RT Tentering Machine Off Bearer Procedure Data Cath Procedure Fluoroscopy Diagnostic fluoroscopy Total fluoroscopy Time: 2 time: 2 min min Diagnostic fluoroscopy Total fluoroscopy dose: 195 dose: 195 mGy mGy Contrast Material Contrast Material Type Amount (ml) Isovue 300 97 Entry Location Entry Primary Successful Side Size Upsize Upsize Entry Closure Succes sful Closure Location (Fr) 1 (Fr) 2 (Fr) Remarks Device Remarks Femoral Right 5 Fr Exoseal artery Femoral Left 6 Fr Exoseal artery Long Estimated blood loss: 5 ml Diagnostic catheters Device Type Used For End Catheter Placement DIAGNOSTIC UF 5Fr Multi-vessel catheter ([id number]) Angiography Procedure Complications No complications Procedure Medications Medication Administration Route Dosage Oxygen etCO2 Nasal cannula 3 l/min Lidocaine 2% added to field 20 Heparin Flush Bag added to field 2 bags (1000units/500ml NS) 0.9% NaCl I.V. 100 ml/hr Versed I.V. 1 mg Fentanyl I.V. 50 mcg Versed I.V. 0.5 mg Fentanyl I.V. 25 mcg Heparin Bolus I.V. 4000 units Versed I.V. 0.5 mg Fentanyl I.V. 25 mcg Hemodynamics Rest HGB: 17.3 (g/dl) Heart Rate: 0 (bpm) Snapshots Pre Cath Intra NCS Post Cath Vital Signs Time Heart Resp SPO2 etCO2 NIBP (mmHg) Rhythm Pain Sedation Rate (ipm) (%) (mmHg) Status Level (bpm) 10:51:24 76 13 89 0 133/80(111) NSR 0 (11) 10(A) , No pain 10:55:40 78 13 93 0 122/66(102) NSR 0 (11) 10(A) , No pain 10:59:54 79 12 91 0 108/66(80) NSR 0 (11) 10(A) , No pain 11:04:08 79 17 91 0 105/59(77) NSR 0 (11) 10(A) , No pain 11:08:22 77 20 91 0 107/59(79) NSR 0 (11) 9(A) , No pain 11:12:32 90 19 90 0 101/60(70) NSR 0 (11) 9(A) , No pain 11:16:44 81 18 92 0 100/55(71) NSR 0 (11) 9(A) , No pain 11:20:54 83 19 91 0 110/62(79) NSR 0 (11) 10(A) , No pain 11:25:06 83 20 91 0 119/68(90) NSR 0 (11) 10(A) , No pain Medications Time Medication Route Dose Verified Delivered Reason Notes Effectiveness by by 10:57:27 Oxygen etCO2 3 Silverio Ramoie used for Nasal l/min Jack Veras RN procedure cannula 10:57:34 Lidocaine 2% added 20ml Silveriokike Sawyer for local to vial Jack Santiago MD anesthetic field 10:57:40 Heparin Flush added 2 Silverio Sawyer used for Bag to bags Jack Santiago MD procedure (1000units/500ml field NS) 10:57:49 0.9% NaCl I.V. 100 Silverio Buffie Per physician ml/hr Jack Veras RN 11:04:30 Versed I.V. 1 mg Silverio Castro for sedation Jack Veras RN 11:04:36 Fentanyl I.V. 50 Silverio Buffie for sedation mcg Jack Veras RN 11:08:35 Versed I.V. 0.5 Silverio Buffie for sedation mg Jack Veras RN 11:08:39 Fentanyl I.V. 25 Silverio Ralphie for sedation mcg Jack Veras RN 11:14:11 Heparin Bolus I.V. 4000 Silverio Ralphie for verif ied units Jack Veras RN anticoagulation with dr santiago 11:15:54 Versed I.V. 0.5 Silverio Buffie for sedation mg Jack Veras RN 11:15:57 Fentanyl I.V. 25 Silverio Buffie for sedation mcg Jack Veras RN Procedure Log Time Note 10:36:41 Iggy Kolbit RT(R) sent for patient. Start room use. 10:36:42 Time tracking: Regular hours (M-F 7:00 - 5:00) 10:36:45 Plan of Care:Hemodynamics will remain stable., Cardiac rhythm will remain stable., Comfort level will be maintained., Respiratory function will remain adequate., Patient/ family verbilizes understanding of procedure., Procedure tolerated without complication., Recovers from procedure without complications.. 10:42:22 Patient received from Pre/Post Procedure Room to CCL 1 Alert and oriented. Tansferred to table in Supine position. 10:42:25 Warm blankets applied, and leslie hugger turned on for patient comfort. 10:42:25 Correct patient and procedure confirmed by team. 10:42:27 Signed procedure consent form obtained from patient. 10:42:41 ECG and BP/O2 sat monitors applied to patient. 10:42:42 Vital chart was started 10:50:45 Baseline sample Acquired. 10:50:54 Rhythm: sinus rhythm 10:50:55 Full Disclosure recording started 10:52:53 H&P Date Dictated: 07/29/2018 Within 30 days and on chart.. 10:52:55 Pre-procedure instructions explained to patient. 10:52:55 Pre-op teaching completed and patient verbalized understanding. 10:53:00 Family in waiting room. 10:53:02 Patient NPO since Midnight. 10:53:09 Is the patient allergic to Iodine/contrast media? No. 10:53:13 Is patient on blood thinner?Yes 10:53:16 ACC The patient was administered the following blood thiners within the last 24 hours: ACCPlavix 10:53:19 Patient diabetic? No. 10:53:20 ----Pre-sedation anethsthesia assessment.---- 10:53:23 Previous problem with sedation/anesthesia? No ? 10:53:24 Snore? Yes 10:53:25 Sleep apnea? Yes 10:53:27 Deviated septum? No 10:53:28 Opens mouth fully? Yes 10:53:29 Sticks out tongue? Yes 10:53:59 Airway obstruction? Yes COPD 10:54:03 Dentures? Yes OUT 10:54:08 Pre procedure: right dorsailis pedis pulse Doppler 10:54:12 Pre procedure: left dorsailis pedis pulse Doppler 10:54:16 Patient pain scale 0/10 ?. 10:54:20 IV patent on arrival in left antecubital with 0.9% NaCl at 10ml/hr. 10:54:28 Bilateral groins area was prepped with chlora-prep and draped in sterile fashion 10:54:29 Alarms reviewed by R. N. 10:54:29 Sharps counted by scrub and verified by R.N. 10:56:34 Lab Result : Hemoglobin 17.3 g/dl 10:56:38 Lab results completed and on chart. 10:57:27 Oxygen 3 l/min etCO2 Nasal cannula was administered by Matthew Veras RN; used for procedure; 10:57:34 Lidocaine 2% 20ml vial added to field was administered by Silverio Santiago MD; for local anesthetic; 10:57:40 Heparin Flush Bag (1000units/500ml NS) 2 bags added to field was administered by Silverio Santiago MD; used for procedure; 10:57:49 0.9% NaCl 100 ml/hr I.V. was administered by Matthew Veras RN; Per physician; 10:58:26 Baseline sample Acquired. 11:01:15 Physician arrived 11:01:15 --------ALL STOP TIME OUT------ 11:01:16 Final Timeout: patient, procedure, and site verified with staff and physician. All members of the team are in agreement. 11:01:18 Bilateral groins site verified by team. 11:01:23 Maximum allowable Isovue 300 dose 300ml. Physician notified. (300ml for normal creatinines. For patients with creatinine of 1.7 or higher multiply weight(kg) x 5 divided by creatinine.) 11:01:27 Fire Safety Assessment: A--An alcohol-based skin anteseptic being used preoperatively., C--Open oxygen or nitrous oxide is being used., D--An ESU, laser, or fiber-optic light is being used. 11:01:31 Physical assessment completed. ASA score P 2 - A patient with mild systemic disease as per Silverio Santiago MD. 11:01:35 Sedation plan: IV Moderate Sedation Medication:Versed, Fentanyl 11:01:56 Use device set Femoral Dx 11:01:57 ACIST Syringe (92035) opened to sterile field. 11:01:58 Bag Decanter (2001S) opened to sterile field. 11:01:59 Medline Cath Pack ([id number]) opened to sterile field. 11:01:59 DIAGNOSTIC WIRE .035 260cm J wire (152071) opened to sterile field. 11:02:01 ACIST Hand Control (78884) opened to sterile field. 11:02:02 ACIST Manifold (55235) opened to sterile field. 11:02:06 Tegaderm 4 x 4 (1626W) opened to sterile field. 11:02:07 SHEATH 5FR [place] (SNI953) opened to sterile field. 11:04:00 Zero performed for pressure channel P1 11:04:30 Versed 1 mg I.V. was administered by Matthew Veras RN; for sedation; 11:04:36 Fentanyl 50 mcg I.V. was administered by Matthew Veras RN; for sedation; 11:06:41 Admit Source: Other 11:07:07 Patient Weight : 222 lbs 11:07:51 Procedure started. 11:07:57 Local anesthetic to right femoral artery with Lidocaine 2% by Silverio Santiago MD.INITIAL ACCESS ONLY 11:08:10 A 5 Fr sheath was inserted into the Right Femoral artery 11:08:35 Versed 0.5 mg I.V. was administered by Matthew Veras RN; for sedation; 11:08:39 Fentanyl 25 mcg I.V. was administered by Matthew Veras RN; for sedation; 11:08:49 A DIAGNOSTIC UF 5Fr catheter ([id number]) was advanced over the wire and used for Multi-vessel Angiography. 11:11:47 SHEATH 6FR Brite Tip 35cm ([id number]) opened to sterile field. 11:11:48 GLIDE WIRE Super Stiff Angled 260cm (UR0039) opened to sterile field. 11:11:48 INFLATOR Merit BasixCompak (XH4549) opened to sterile field. 11:12:05 Catheter removed. 11:12:10 Local anesthetic to left femerol artery with Lidocaine 2% by Silverio Santiago MD.ADDITIONAL ACCESS 11:12:24 A 6 Fr Long sheath was inserted into the Left Femoral artery 11:13:41 TORQUE DEVICE PLASTIC .038 ( TD01) opened to sterile field. 11:14:11 Heparin Bolus 4000 units I.V. was administered by Matthew Veras RN; for anticoagulation; verified with dr santiago 11:15:54 Versed 0.5 mg I.V. was administered by Matthew Veras RN; for sedation; 11:15:57 Fentanyl 25 mcg I.V. was administered by Matthew Veras RN; for sedation; 11:16:12 glide wire advanced. 11:17:21 Procedure type changed to Cath procedure, Peripheral Cath Diagnostic Procedure, Trust And Estates Attorney Peripheral Procedures, Tjldf-Migkxqo-Cad-Off, Peripheral vascular Intervention, Stent, Stent Iliac w/plasty Initial 11:17:44 Place stent Inflation Number: 1 A BECKA 7 x 29 x 135 stent ([id number]) was prepped and advanced across the Mid Common Iliac, Left. The stent was deployed at 13 JAY for 0:10 (min:sec). 11:17:51 Inflation number: 2 The stent balloon was then re-inflated across the Mid Common Iliac, Left to 13 JAY for 0:10 (min:sec). 11:18:33 Stent catheter was removed intact over wire. 11:18:35 Wire removed. 11:18:45 EXOSEAL 6Fr (EX600) opened to sterile field. 11:25:26 Sheath removed intact; hemostasis achieved with Exoseal to the Left Femoral artery. 11:25:30 EXOSEAL 5Fr (EX500) opened to sterile field. 11:25:38 Sheath removed intact; hemostasis achieved with Exoseal to the Right Femoral artery. 11:25:41 Procedure ended.(Physican Out) 11:26:14 Fluoroscopy time 02.00 minutes. 11:26:18 Fluoroscopy dose: 195 mGy 11:26:18 Flurop Dose total: 195 11:26:22 Contrast amount:Isovue 300 97ml. 11:26:24 Sharps counted by scrub and verified by R.N. 11:26:35 Insertion/operative site no bleeding no hematoma. 11:26:39 Post-op/insertion site Right Femoral artery dressed using a 4 x 4 and Tegaderm. 11:26:42 Post-op/insertion site Left Femoral artery dressed using a 4 x 4 and Tegaderm. 11:26:45 Post procedure rhythm: unchanged. 11:26:48 Estimated blood loss: 5 ml 11:26:51 Post procedure instruction explained to patient.Patient verbalizes understanding. 11:26:52 Patient needs reinforcement of post procedure teaching. 11:27:14 Procedure and supply charges have been captured, reviewed, submitted and are correct. 11:27:28 Procedure Complication : No complications 11:27:30 Vital chart was stopped 11:27:31 See physician's report for complete and final results. 11:27:38 Report given to Pre/Post Procedure Room. 11:27:40 Patient transfered to Pre/Post Procedure Room with Stretcher. 11:27:50 Procedure ended. 11:27:50 Full Disclosure recording stopped 11:28:01 ACC-PCI Only Patient was given prescriptions, or instructed by Silverio Santiago MD to start/continue the following medications upon discharge: Plavix 11:28:07 End room use (Document Last) Intervention Summary Intervention Notes Time ActionType Lesion and Equipment Action# Pressure Duration Attributes Used 11:17:44 Place stent Mid Common BECKA 7 x 1 13 00:10 Iliac, Left 29 x 135 stent ([id number]) 11:17:51 Reinflate Mid Common BECKA 7 x 2 13 00:10 stent Iliac, Left 29 x 135 balloon stent ([id number]) Device Usage Item Name Manufacture Quantity Catalog Hospital Part Current Minimal L ot# / Number Charge Number Stock Stock Serial# Code ACIST Acist 1 13038 602776 167137 445199 20 Syringe Medical (72857) Systems Inc Bag Microtek 1 444418 99130 049186 5 Decanter Medical Inc. () Medline Medline 1 [id number] 869246 65435 389072 5 Cath Pack ([id number]) DIAGNOSTIC [facility] Samuel 1 671728 904666 878560 783029 30 WIRE .035 260cm J wire (248658) ACIST Hand Acist 1 55951 759203 362809 923402 5 Control Medical (06499) Systems Inc ACIST Acist 1 94985 136909 394437 053925 5 Manifold Medical (80480) Systems Inc Tegaderm 4 3M 1 1626W 862457 006354 318654 5 x 4 (1626W) SHEATH 5FR Terumo 1 OIR811 773398 682987 892900 5 [place] (SXT282) DIAGNOSTIC Cardinal 1 [id number] 590310 383029 229866 10 UF 5Fr Health catheter (942126M0) SHEATH 6FR Cardinal 1 [id number] 837043 989604 621845 1 Brite Tip Health 35cm (641335U) GLIDE WIRE Terumo 1 EQ4123 409987 478907 395363 5 Super Stiff Angled 260cm (ZX3765) INFLATOR Merit 1 CO4490 810847 307444 078702 15 Turbo Studios Medical BasixCompak (GA9264) TORQUE [place] 1 TD01 382444 619224 859299 5 DEVICE Scientific PLASTIC .038 ( TD01) BECKA 7 x Cardinal 1 [id number] 555315 80190 811721 5 1 [id number] 29 x 135 Health stent ([id number]) EXOSEAL 6Fr Cardinal 1 EX600 760637 973640 298513 10 (EX600) Health EXOSEAL 5Fr Cardinal 1 EX500 386076 100703 480068 10 (EX500) Health Signature Audit Dawson Stage Time Signature Unsigned Intra-Procedure 08/04/2018 Nemo Sevilla 11:32:20 AM RT(R) Signatures Monitor : Nemo Sevilla RT Signature : Date : Time : [id number] [place] [address]
[2018-08-04] MEDS ORDERED: CILOSTAZOL100 MG PO (09:53)
[2018-08-04] MEDS ORDERED: SYMBICORT 16010.2 GM INH (09:55)
[2018-08-04] MEDS ORDERED: ALBUTEROL SULF8.5 GM INH (09:56)
[2018-08-04] MEDS ORDERED: LISINOPRIL10 MG PO (09:56)
[2018-08-04] MEDS ORDERED: MEGACE40 MG PO (09:57)
[2018-08-04] MEDS ORDERED: MORPHINE SULFAT15 M4 PO (09:58)
[2018-08-04] MEDS ORDERED: ZOLOFT50 MG PO (09:59)
[2018-08-04 10:09] VITALS: BP 116/61; Ht 185.4 cm; Wt 100.9 kg
--- NOTE | 2018-08-04 10:10 | NUR ---
BILATERAL PEDAL PULSES LOCATED AND MARKED USING DOPPLER.
[2018-08-04 10:35] LABS: ANION GAP 13.5 mmol/L (8-16); CALCIUM 8.7 mg/dL (8.5-10.1); CARBON DIOXIDE 25.7 mmol/L (21.0-32.0); CREATININE - SERUM 1.4 mg/dL (0.6-1.3); POTASSIUM - SERUM 3.2 mmol/L (3.5-5.1)
[2018-08-04 10:38] LABS: BASOPHILS 0.2 % (0-2); EOSINOPHILS 2.4 % (0-7); HEMATOCRIT 49.6 % (42.0-54.0); HEMOGLOBIN 17.3 g/dL (13.5-17.5); IMMATURE GRANULOCYTES 0.2 % (0-5); LYMPHOCYTES 16.2 % (15-50); MCHC 34.9 g/dL (31.0-37.0); MCV 94.7 fL (80.0-100.0); MEAN PLATELET VOLUME 12.8 fL (7.4-10.4); MONOCYTES 10.8 % (2-11); NEUTROPHILS 70.2 % (40-80); RBC 5.24 10x6/uL (4.20-6.10); RDW 15.1 % (11.5-14.5); WBC 9.5 10x3/uL (4.8-10.8)
[2018-08-04 10:42] LABS: PLATELET COUNT 125 10x3/uL (130-400)
--- NOTE | 2018-08-04 11:35 | NUR ---
PT RECEIVED VIA STRETCHER FROM SHEETER MACHINE OPERATOR FOR RECOVERY. PT MOANING C/O PAIN IN LEGS, PT INSTRUCTED ON IMPORTANCE OF KEEPING LEG STRAIGHT AND HEAD ON PILLOW. HR NSR RATE 81, BP 109/64, O2 SAT 89 PLACED ON 3L/NC. CALL LIGHT IN REACH, FAMILY AT BEDSIDE. WARM BLANKETS PLACED ON LEGS FOR COMFORT. 5 FR EXOCELE TO L GROIN, DRESSING CDI NO BLEEDING OR HEMATOMA NOTED. 6 FR EXOCELE TO R GROIN, DRESSING CDI NO BLEEDING OR SWELLING NOTED.
--- NOTE | 2018-08-04 11:50 | NUR ---
10 MG NORCO GIVEN PER ORDERS FOR LEG PAIN
--- NOTE | 2018-08-04 12:08 | NUR ---
DR. STACK ROUNDED AND SPOKE WITH PT AND PT'S FAMILY. UPDATED THEM ON PT'S STATUS.
--- NOTE | 2018-08-04 12:15 | NUR ---
PT REPORTS THAT PAIN HAS IMPROVED. STATES "IT'S DULLING THE PAIN A LITTLE". BILATERAL GROIN DRESSINGS ARE C/D/I. NO S/S OF HEMATOMA NOTED. BILATERAL LEGS ARE WARM TO TOUCH. CALL LIGHT WITHIN REACH. VSS.
--- NOTE | 2018-08-04 12:30 | NUR ---
PT RESTING W EYES CLOSED, R AND L GROIN REMAIN SOFT NO BLEEDING OR HEMATOMA NOTED. DRESSINGS CDI. CALL LIGHT IN REACH
--- NOTE | 2018-08-04 13:00 | NUR ---
PT SLEEPING, CALL LIGHT IN REACH. R GROIN DRESSING CDI NO BLEEDING OR SWELLING NOTED. L GROIN DRESSING CDI NO BLEEDING OR SWELLING NOTED. NO C/O.
--- NOTE | 2018-08-04 13:30 | NUR ---
PT SLEEPING COMFORTABLY, R AND L GROIN DRESSINGS ARE CDI NO BLEEDING OR SWELLING NOTED IN EITHER LEG. VSS, CALL LIGHT IN REACH.
--- NOTE | 2018-08-04 14:26 | NUR ---
BILATERAL GROIN SITES C/D/I. SOFT TO TOUCH. NO S/S OF HEMATOMA NOTED. PT'S HEAD OF BED INC TO 30 DEGREES. GIVEN URINAL. VSS.
--- NOTE | 2018-08-04 14:45 | NUR ---
PT VOIDED IN URINAL WITHOUT DIFFICULTY. APPROX 150CC CLEAR YELLOW URINE NOTED. PT GIVEN WARM CLOTH TO WIPE HANDS. SET UP WITH SANDWICH TRAY AND DRINK.
--- NOTE | 2018-08-04 15:00 | NUR ---
LEFT ARM PIV D/C'D WITH CATH TIP INTACT. PT TOLERATED WELL.
--- NOTE | 2018-08-04 15:26 | NUR ---
PT UP AND DRESSED SELF. DISCUSSED DISCHARGE INSTRUCTIONS WITH PT AND PT'S CAREGIVER AT BEDSIDE. THEY VOICED UNDERSTANDING.
--- NOTE | 2018-08-04 15:45 | NUR ---
PT TAKEN OUT TO VEHICLE BY WHEELCHAIR. NO S/S OF DISTRESS NOTED. PT'S HOME MEDICATIONS WERE IN A ZIPLOCK AND GIVEN TO HIS CAREGIVER. ALL DISCHARGE PAPERWORK IN HAND.
--- NOTE | 2018-08-07 14:57 | OP ---
PATIENT NAME: PIPPA HDEZ MEDICAL RECORD: [id number] :36 LOCATION:D.CAT ADMISSION DATE: SURGEON: JOSE ANTONIO STACK MD DATE OF OPERATION: 08/04/2018 PROCEDURES: 1. Stent placement, iliac, left. 2. GAS CONTROLLER, iliac, left. 3. Aortofemoral runoff. 4. Abdominal angiography. INDICATIONS: Claudication and peripheral vascular disease. PROCEDURE IN DETAIL: After informed consent was obtained and after a detailed explanation of the risks, benefits as well as alternative therapies, the patient elected to proceed with angiogram and angioplasty. The left femoral area was prepped and draped in normal sterile fashion. Left femoral artery was cannulated via modified Seldinger technique with placement of 6-St Helenian sheath. All catheters exchanged through this sheath. FINDINGS: The abdominal aortography was performed. The catheter was pulled down for aortofemoral runoff. Abdominal aortography reveals no abdominal aortic disease, no dissection or aneurysm formation. RIGHT LEG: A. Iliac: The common internal and external iliacs have mild irregularities, but no flow-limiting stenosis. B. Femoral system: The common and deep femoral are widely patent. Superficial femoral has 85+ percent stenosis times 2 in the mid vessel. C. Popliteal and infrapopliteal vessels are patent. There is 3-vessel runoff to the foot, although moderate to severely diffusely diseased. LEFT LEG: A. Iliac: The common iliac has no significant stenosis. The external iliac has 90% to 95% stenosis. B. Femoral system: The common and deep femoral are widely patent. Superficial femoral has a total occlusion in the mid vessel. This really does not reconstitute distally. There are extensive networks of spider collaterals. It appears that the distal SFA is totally occluded. The popliteal is totally occluded. It reconstitutes only showing us the peroneal posterior tibial junction. These appear to be severely diffusely diseased and not patent for a very long and they are coarse. GAS CONTROLLER AND STENT OF THE LEFT ILIAC: The balloon and stent used was a Cordis Diamond 7 x 29, taken to 13 atmospheres. Result was 0% residual stenosis. OVERALL IMPRESSION: Successful GAS CONTROLLER and stent of the left iliac going from 90+ percent initial stenosis to 0% residual. There is no transcatheter or surgical option for the left SFA occlusion. TRANSINT:[id number] Voice Confirmation ID: [id number] DOCUMENT ID: [id number] OPERATIVE REPORT [id number] PIPPA HDEZ JEFFREY MD at 1457 CC: [id number] DICTATION DATE: 08/04/18 1210 PANAMA HAT HYDRAULIC PRESS OPERATOR: 08/04/18 1356 DEP CLI 08/04/18 [id number] [place] [address]
== END 2018-08-04 15:45 | disposition home or self-care (01) ==
LOC: D.CATH 09:25
PROVIDERS: ATTEND Internal Medicine Interventional Cardiology
DX: I70.212 Atherosclerosis of native arteries of extremities with intermittent claudication, left leg (principal); Z01.812 Encounter for preprocedural laboratory examination

== ENCOUNTER → 2019-01-06 09:48 | Outpatient (CLI) | payer MEDICARE, BC ==
[2018-09-25 10:10] VITALS: BMI 28.0
[~2019-01-06 09:48] MED LIST changes: +ALBUTEROL SULF8.5 GM INH; +CILOSTAZOL100 MG PO; +LISINOPRIL10 MG PO; +MEGACE40 MG PO; +MORPHINE SULFAT15 M4 PO; +ZOLOFT50 MG PO
== END | disposition home or self-care (01) ==
LOC: D.RAD 09:48
PROVIDERS: ATTEND Internal Medicine Pulmonary Disease
DX: J44.9 Chronic obstructive pulmonary disease, unspecified (principal)